=== PATIENT | female | born 1955 | race Caucasian/White ===

== ENCOUNTER 2020-06-23 07:10 | Inpatient (IN) | payer OTHER, SELFPAY ==
[~2020-06-23] VITALS: Ht 154.9 cm; Wt 51.3 kg
--- NOTE | 2020-06-23 07:10 | NUR ---
Patient BIBA ALS from [facility] [place], transferred to bed [address]. Dr. Gage, RT, and RN are evaluating the patient at bedside.
--- NOTE | 2020-06-23 07:12 | NUR ---
RECEIVED FROM [facility] ON A NON REBREATHER TRANSFERRED OXYGEN LINE TO ED FLOW METER AT 15 LPM LOC AWAKE BREATH SOUNDS COARSE RHONCHI BILATERAL REVIEWED PULMONARY STATUS AND NASOTRACHEAL SUCTION PROCEDURE WITH DR. KHURRAM HARRIS USING A STERILE TECHNIQUE APPLIED LUBRICANT TO THE DISTAL END OF 14 FR SUCTION CATHETER INSERTED INTO LEFT NASAL SEPTUM SUCCESSFULLY PASSING EPIGLOTTIS INTO TRACHEA/BRONCHIAL REGION X 2 OBTAINED COPIUOUS AMOUNTS OF THICK YELLOW SECRETIONS SUPPLEMENTAL OYXGEN PROVIDED THROUGHOUT SUCTIONING PROCEDURE TOLERATED WELL WITH VERY MINIMAL TRAUMA SUUPLEMENTAL OXYGEN AT 15 LPM VIA NON REBREATHER REMAINS IN PLACE WITH SATURATION NOW AT 100% FOREMENTIONED KIMBERLY NOTIFIED
[2020-06-23 07:14] VITALS: BP 98/57
--- NOTE | 2020-06-23 07:15 | NUR ---
DR. SHARMA SPOKE TO FAMILY; WISH TO MOVE FORWARD WITH COMFORT CARE BUT ALLOWED FLUID ADMINISTRATION VIA IV, LAB DRAWS, CULTURES, ABX ADMINISTRATION
[2020-06-23] MEDS ORDERED: NACL 0.9% 1,000 ML IV ONE ×2 (07:20→07:25)
[2020-06-23] MEDS ORDERED: ACETAMINOPHEN 650 MG/20.3 ML UDC GT ONE (07:20)
--- NOTE | 2020-06-23 07:21 | NUR ---
Blood sample collected, walked to lab and handed to carito Goodwin tech.
[2020-06-23] MEDS ORDERED: cefTRIAXone 1,000 MG VIAL ONE (07:26)
--- NOTE | 2020-06-23 07:30 | NUR ---
# 16 FR Cuevas catheter with 10 ml utilizing sterile technique. Immediate return of 0 ml urine noted. Bedside drainage bag placed below level of bladder. Urine sample collected and sent to lab. Pt tolerated procedure well. Will continue to monitor for urine return.
--- NOTE | 2020-06-23 07:32 | NUR ---
EMT at bedside for EKG
[2020-06-23 07:34] LABS: BASOPHILS # (AUTO) 0.2 K/uL (0.00-0.22); BASOPHILS % (AUTO) 0.7 % (0.0-2.0); EOSINOPHILS % (AUTO) 0.1 % (0.0-4.0); HEMATOCRIT 38.4 % (36-48); HEMOGLOBIN 12.3 g/dL (12.0-16.0); LYMPHOCYTES # (AUTO) 0.6 K/uL (2.5-16.5); LYMPHOCYTES % (AUTO) 2.4 % (20.5-51.1); MEAN CORPUSCULAR HEMOGLOBIN 28 pg (27-31); MEAN CORPUSCULAR HGB CONC 32 g/dL (33-37); MEAN CORPUSCULAR VOLUME 87.1 fL (80-94); MONOCYTES # (AUTO) 0.6 K/uL (0.8-1.0); MONOCYTES % (AUTO) 2.7 % (1.7-9.3); NEUTROPHILS # (AUTO) 21.5 K/uL (1.8-7.7); NEUTROPHILS % (AUTO) 94.1 % (42.2-75.2); PLATELET COUNT (AUTO) 487 K/uL (140-450); RED BLOOD CELL COUNT(AUTO) 4.41 MIL/uL (4.20-5.40); RED CELL DISTRIBUTION WIDTH 18.6 % (11.6-13.7); WHITE BLOOD COUNT (AUTO) 22.8 K/uL (4.8-10.8)
--- NOTE | 2020-06-23 07:43 | NUR ---
Pollo ortega swab collected, walked to lab and handed to carito Goodwin tech.
--- NOTE | 2020-06-23 07:45 | NUR ---
Concepción nguyen in [facility] - 06/23/20 at 0749 by KENNETH Xray at bedside
--- NOTE | 2020-06-23 07:46 | NUR ---
XRAY AT BEDSIDE
[2020-06-23 07:48] LABS: ALBUMIN 2.8 g/dL (3.4-5.0); ANION GAP 14.9 (8-16); CARBON DIOXIDE 27.5 mmol/L (21-32); CREATININE 0.7 mg/dL (0.6-1.3); POTASSIUM 4.4 mmol/L (3.5-5.1); TOTAL BILIRUBIN 0.6 mg/dL (0.0-1.0)
--- NOTE | 2020-06-23 07:58 | NUR ---
LACTIC ACID 4.9--CRITICAL VALUE RECEIVED FROM LAB. DR SHARMA MADE AWARE.
[2020-06-23 08:11] LABS: APPEARANCE,URINE HAZY (CLEAR); BILIRUBIN,URINE NEGATIVE (NEGATIVE); BLOOD, URINE 2+ (NEGATIVE); COLOR,URINE DARK YELLOW (YELLOW); LEUKOCYTE ESTERASE ,URINE NEGATIVE (NEGATIVE); NITRITE, URINE NEGATIVE (NEGATIVE); PH,URINE 5.5 (5.0-9.0); UGLUCOSE NEGATIVE (NEGATIVE)
[2020-06-23 08:23] LABS: WBC,URINE 0-5 /HPF (0-5)
[2020-06-23] MEDS ORDERED: MULT-2253 GT (08:38)
[2020-06-23] MEDS ORDERED: MELA3TER PO (08:38)
[2020-06-23] MEDS ORDERED: CLON0.2T47 PO (08:38)
[2020-06-23] MEDS ORDERED: MAGN400S60 PO (08:38)
[2020-06-23] MEDS ORDERED: FLEPED RC (08:38)
[2020-06-23] MEDS ORDERED: DOCU-299 GT (08:38)
[2020-06-23] MEDS ORDERED: BISA-213 RC (08:38)
[2020-06-23] MEDS ORDERED: ACET-2619 PO (08:38)
--- NOTE | 2020-06-23 08:57 | NUR ---
DR. BUSBY AT BEDSIDE
[2020-06-23] MEDS ORDERED: guaiFENesin DM 200/20 MG-10 ML 10 ML UDC PO PRN (09:10)
[2020-06-23] MEDS ORDERED: DOCUSATE SODIUM 100 MG GELCAP PO PRN (09:10)
[2020-06-23] MEDS ORDERED: KCL 20 MEQ/WATER INJ PREMIX 200 ML IV PRN (09:10)
[2020-06-23] MEDS ORDERED: ZOLPIDEM 5 MG TAB PO PRN (09:10)
[2020-06-23] MEDS ORDERED: HYDROcodone/APAP 7.5/325 MG 1 TAB PO PRN (09:10)
[2020-06-23] MEDS ORDERED: ACETAMINOPHEN 325 MG TAB PO PRN (09:10)
[2020-06-23] MEDS ORDERED: ONDANSETRON 4 MG/2 ML VIAL IM/IVP PRN (09:10)
[2020-06-23] MEDS ORDERED: cloNIDine-TTS2 0.2 MG/24 HR 1 EA PATCH TD SCH (09:20)
[2020-06-23] MEDS: NACL 0.9% 1,000 ML IV SCH (09:26)
--- NOTE | 2020-06-23 09:43 | NUR ---
PT LYING BED, EYES OPEN, BREATHING EVEN AND UNLABORED. REMAINS ON 15L NON-REBREATHER, SPO2 100%. NO APPARENT DISTRESS. CONTINUES ON MONITOR. WILL CONTINUE TO ASSESS.
[2020-06-23 09:44] LABS: CHOL/HDL RATIO 3.7 (1-4.5); FREE T4 (FREE THYROXINE) 1.28 ng/dL (0.76-1.46); PHOSPHORUS 4.1 mg/dL (2.5-4.9); THYROID STIMULATING HORMONE 1.19 uIU/mL (0.34-3.74)
[2020-06-23] MEDS: PIPERACILLIN/TAZOBACTAM 3.375 GM in DEXTROSE 5% 50 ML IV SCH ×2 (10:00→21:28)
[2020-06-23] MEDS: METOPROLOL 25 MG TAB PO SCH ×2 (10:00→21:30)
--- NOTE | 2020-06-23 10:15 | NUR ---
RECEIVED TRANSFER REPORT FROM ER NURSE. PATIENT ADMITTED FROM [facility] [place] W/ CC OF SOB. DX: SEPSIS PNA; NONVERBAL/DYSPHASIA; ON 15L NONREBREATHER MASK, SPO2 100%; HAS GTUBE PLACED BUT NO FEED SCHEDULED AT THE MOMENT. PATIENT HAS NOEL CATHETER, RAC 18G RUNNING NS @75 ML. PATIENT GIVEN 2 BOLUSES IN ER, ABX ROCEPHIN AND TYLENOL;PATIENT VS: PULSE 120; BP 137/68; RR 20; SPO2 100%; TEMP 99.9. PATIENT IS NEGATIVE [place]. FAMILY IS MONGOLIAN SPEAKING ONLY. PENDING PATIENT TRANSFER TO UNIT.
--- NOTE | 2020-06-23 10:15 | NUR ---
ASKED DR. BUSBY TO CHANGE MED ORDERS FROM PO TO GT DUE TO PTS INABILITY TO SAFELY SWALLOW AT THE MOMENT
--- NOTE | 2020-06-23 10:19 | NUR ---
Patient will be admitted to care of MD QI. Admited to TELEMETRY. Will go to room 121A. Belongings list completed. Report to ALEXANDRA KEEN.
[2020-06-23 10:45] VITALS: BP 110/54
--- NOTE | 2020-06-23 10:45 | NUR ---
PATIENT ARRIVED TO UNIT, PLACED IN YELLOW GOWN, SOCKS; FALL PRECAUTIONS IN PLACE W/ WRISTBAND ON RIGHT WRIST; SKIN ASSESSMENT COMPLETED, SMALL LEFT POSTERIOR HIP PRESSURE WOUND, UNOPENED W/ BARRIER CREAM ON. NO DRAINAGE, NO SWELLING, NO PAIN. PATIENT V/S: BP 110/54; PULSE 114; SPO2 100%; TEMP 96.7; RR 24. PATIENT IS STABLE. SAFETY MEASURES IN PLACE. WILL CONTINUE TO MONITOR.
--- NOTE | 2020-06-23 10:52 | NUR ---
[facility]
[2020-06-23 12:00] VITALS: BP 133/63
[2020-06-23] MEDS ORDERED: VANCOMYCIN PER PHARMACY MC PRN (12:15)
[2020-06-23] MEDS: NACL 0.9% 500 ML IV SCH ×3 (12:20→14:20)
[2020-06-23 12:40] LABS: PROTHROMBIN TIME 10.5 secs (10.8-13.4)
[2020-06-23] MEDS: CLONIDINE HYDROCHLORIDE 0.1 MG TAB PO SCH ×2 (13:00→17:00)
[2020-06-23] MEDS: VANCOMYCIN 1,000 MG in DEXTROSE 5% 250 ML IV SCH (14:00)
[2020-06-23 16:00] VITALS: BP 123/50
--- NOTE | 2020-06-23 19:43 | NUR ---
BEDSIDE ENDORSEMENT TO NIGHTSHIFT NURSE FOR CONTINUITY OF CARE.
--- NOTE | 2020-06-23 19:44 | NUR ---
RECEIVED PATIENT FROM AM NURSE FOR CONTINUITY OF CARE. PATIENT IS NON-VERBAL/APHASIC. ON TELE MONITOR. RESPIRATORY EVEN AND UNLABORED, ON 15L NONREBREATHER MASK, SPO2 100%. G-TUBE IN PLACED. NOEL CATHETER IN PLACE. SKIN WARM, NON-DIAPHORETIC, IV ON RAC 18G RUNNING NS @75 ML. PLAN OF CARE DISCUSSED. PRECAUTION IN PLACE. CALL LIGHT WITHIN REACH. WILL CONTINUE TO MONITOR.
[2020-06-23 20:00] VITALS: BP 144/77
--- NOTE | 2020-06-23 20:00 | NUR ---
VITAL SIGNS CHECK, TEMP 100.1, COOLING MEASURE APPLIED. SKIN DRY, NON-DIAPHORETIC. CALL LIGHT WITHIN REACH. WILL CONTINUE TO MONITOR.
--- NOTE | 2020-06-23 21:00 | NUR ---
RESIDUAL CHECK 0ML. TUBE FEEDING START ORDER. GLUCERNA 1.2 10ML/HR, WATER FLUSH 200ML Q4H. ADVANCE 10ML Q6H. WILL CONTINUE TO MONITOR.
--- NOTE | 2020-06-23 22:20 | NUR ---
RECHECK TEMP 98.2. PATIENT IS RESTING, NO SIGN OF DISTRESS NOTED. CALL LIGHT WITHIN REACH. WILL CONTINUE TO MONITOR.
[2020-06-24] VITALS: BP 136/69
--- NOTE | 2020-06-24 | NUR ---
ROUND CHECK. PATIENT IS SLEEPING. CHEST RISE AND FALL. NO SIGN OF DISTRESS NOTED. PRECAUTION IN PLACE. CALL LIGHT WITHIN REACH. WILL CONTINUE TO MONITOR.
[2020-06-24] MEDS: NACL 0.9% 1,000 ML IV SCH ×2 (00:58→11:53)
--- NOTE | 2020-06-24 02:00 | NUR ---
ROUND CHECK. PATIENT IS RESTING IN BED. FLACC 0. RESPIRATORY EVEN AND UNLABORED. SAFETY MEASURES IN PLACE. WILL CONTINUE TO MONITOR.
--- NOTE | 2020-06-24 03:00 | NUR ---
RESIDUAL 5ML. INCREASE FEEDING 20ML/HR, WATER FLUSH 200ML Q6H. WILL CONTINUE TO MONITOR.
[2020-06-24 04:00] VITALS: BP 115/60
--- NOTE | 2020-06-24 04:00 | NUR ---
PATIENT IS SLEEPING. CHEST RISE AND FALL, NO SIGN OF DISTRESS NOTED. HOB ELEVATED. WILL CONTINUE TO MONITOR.
[2020-06-24 04:57] LABS: BASOPHILS # (AUTO) 0.1 K/uL (0.00-0.22); BASOPHILS % (AUTO) 0.4 % (0.0-2.0); EOSINOPHILS # (AUTO) 0.2 K/uL (0-0.4); EOSINOPHILS % (AUTO) 1.4 % (0.0-4.0); HEMATOCRIT 26.1 % (36-48); HEMOGLOBIN 8.5 g/dL (12.0-16.0); LYMPHOCYTES # (AUTO) 1.8 K/uL (2.5-16.5); LYMPHOCYTES % (AUTO) 10.4 % (20.5-51.1); MEAN CORPUSCULAR HEMOGLOBIN 28 pg (27-31); MEAN CORPUSCULAR HGB CONC 32 g/dL (33-37); MEAN CORPUSCULAR VOLUME 87.1 fL (80-94); MONOCYTES # (AUTO) 0.6 K/uL (0.8-1.0); MONOCYTES % (AUTO) 3.7 % (1.7-9.3); NEUTROPHILS # (AUTO) 14.1 K/uL (1.8-7.7); NEUTROPHILS % (AUTO) 84.1 % (42.2-75.2); PLATELET COUNT (AUTO) 293 K/uL (140-450); RED CELL DISTRIBUTION WIDTH 18.4 % (11.6-13.7); WHITE BLOOD COUNT (AUTO) 16.8 K/uL (4.8-10.8)
[2020-06-24 05:02] LABS: CARBON DIOXIDE 27.6 mmol/L (21-32); CREATININE 0.4 mg/dL (0.6-1.3); POTASSIUM 3.6 mmol/L (3.5-5.1)
[2020-06-24] MEDS: PIPERACILLIN/TAZOBACTAM 3.375 GM in DEXTROSE 5% 50 ML IV SCH ×3 (05:10→21:06)
--- NOTE | 2020-06-24 05:10 | NUR ---
IV MEDICATION GIVEN ORDER. PATIENT TOLERATED WELL. PATIENT IS NO SIGN OF DISTRESS. WILL CONTINUE TO MONITOR.
--- NOTE | 2020-06-24 07:15 | NUR ---
ENDORSED PATIENT TO AM NURSE FOR CONTINUITY OF CARE. PATIENT IS RESTING IN BED. NO SIGN OF DISTRESS NOTED. PATIENT IS STABLE.
--- NOTE | 2020-06-24 07:17 | NUR ---
RECEIVED REPORT FROM NIGHT NURSE PT IS APHASIC ON 15LPM NON REBREATHER MASK SATURATION 99-100%, WITH NOEL CATHETER, IV INTACT ON RIGHT AC LAST BOWEL MOVEMENT 06/23/20, SKIN INTACT WITH WHITE PATCHES ON LEFT POST HIP,RIGHT MEDIAL FOOT AND LEFT LATERAL FOOT. ON BILATERAL HEEL PROTECT.TUBE FEEDING GLUCERNA AT 20 WATERFLUSH 200 Q4H. SAFETY MEASURES IN PLACE AND CALL LIGHT WITHIN REACH. WILL CONTINUE TO MONITOR.
[2020-06-24 08:00] VITALS: BP 130/63
[2020-06-24 08:08] LABS: T4 (THYROXINE) 8.5 ug/dL (4.5-12.0)
--- NOTE | 2020-06-24 08:44 | NUR ---
[facility] REFERRAL RECEIVED FOR TUBE FEEDING. PATIENT HAS BEEN SCREENED AND CATEGORIZED HIGH NUTRITION RISK. PATIENT WILL BE SEEN WITHIN 1-2 DAYS OF ADMISSION. 06/24/[address]
--- NOTE | 2020-06-24 09:00 | NUR ---
RECEIVED RESULT FROM LAB PT IS POSITIVE FOR MRSA NARES. DR BUSBY AWARE AND RECEIVED REPORT.
[2020-06-24] MEDS: PANTOPRAZOLE 40 MG TABEC PO SCH (09:18)
[2020-06-24] MEDS: METOPROLOL 25 MG TAB PO SCH ×2 (09:19→21:00)
--- NOTE | 2020-06-24 09:19 | NUR ---
BP 100/54, HR 104, HOLD LOPRESSOR 25MG DUE TO LOW BLOOD PRESSURE. WILL CONTINUE TO MONITOR.
[2020-06-24] MEDS: CLONIDINE HYDROCHLORIDE 0.1 MG TAB PO SCH ×3 (09:20→16:50)
--- NOTE | 2020-06-24 09:20 | NUR ---
SCHEDULED MEDICATION GIVEN CHECK VITAL SIGNS PRIOR TO BP MEDICATION BP 130/63 MI 92 NO RESIDUALS PT IS STABLE NO DISTRESS NOTED,
[2020-06-24] MEDS: MUPIROCIN CA NASAL 2% 1GM TUBE NS SCH (11:24)
[2020-06-24] MEDS: CHLORHEXADINE GLUC 2% CLOTH TP SCH (11:24)
--- NOTE | 2020-06-24 11:27 | NUR ---
MEDICATION DUE GIVEN PT IS SLEEPING.
[2020-06-24 12:00] VITALS: BP 91/41
--- NOTE | 2020-06-24 12:08 | NUR ---
SOCIAL WORK NOTE: Patient's Orientation Unable To Assess Information Provided By KYAW PORTILLO - DAUGHTER Comments SW WAS UNABLE TO MEET PATIENT AT BEDSIDE. SW COMPLETED ASSESSMENT WITH PATIENT'S DAUGHTER. SW USED DIRECTOR OF RECRUITMENT AND ADMISSIONS LV [id number]. Box Gluer, Realtionship and Phone Number KYAW PORTILLO DAUGHTER [phone] ROYA ZAZUETA [phone] Healthcare Power of Paper Rewinder Operator No Does Patient Have a POLST No Identifying Problems No Social Work Triggers Is A Social Work Consult Needed No Mandate Report Filed No Explanation Of Identifying Problems PATIENT IS A 64-YEAR-OLD FEMALE ADMITTED FOR SEPSIS AND PNEUMONIA. PATIENT HAS PMHX OF ALZHEIMER'S DISEASE, HYPERTENSION, METABOLIC ENCEPHALOPATHY, AND DYSPHAGIA. [facility] - [phone] Pre-Admission Level Of Functioning Status Total Care Prior Resources/Services Used In Last 12 Months SNF [facility] Prior Resources/Service Comments PATIENT IS INTERMEDIATE AND ON A BED HOLD. Prior DME Hospital Bed Dialysis Comments N/A Patient Had Caregiver No Home Support No Caregiver Issues Financial Issues No Known Financial Issue Referral To The Financial Counselor Needed No Factors/Needs No D/C Needs Identified Pt/Rep Participated In Discharge Plan Yes Patient/Family Agress With Discharge Plan Yes Discharge Plan Comments TENTATIVE DISCHARGE PLAN IS FOR PATIENT TO RETURN HOME. DC Plan Status Initiated
--- NOTE | 2020-06-24 12:53 | NUR ---
MEDICATION DUE GIVEN CLONIDINE HCL 0.2 HELP PER PARAMETERS BP 91/41 VT 78 OXYGEN SATURATION 100%. NO DISTRESS NOTED.
[2020-06-24] MEDS: VANCOMYCIN 1,000 MG in DEXTROSE 5% 250 ML IV SCH (14:10)
--- NOTE | 2020-06-24 14:30 | NUR ---
06/24/20 INITIAL ASSESSMENT COMPLETED PLEASE REFER TO NUTRITION ASSESSMENT UNDER CARE ACTIVITY FOR ESTIMATED NUTRITIONAL NEEDS. 1. CONTINUE GLUCERNA @ 40 ML/HR -THIS PROVIDE 1152 KCAL AND 58 GM OF PROTEIN WHICH MEETS 80% OF ESTIMATED KCAL AND 100% OF PROTEIN NEEDS 2. FLUSH PER MD. CURRENTLY [address] TO FOLLOW-UP 2-3 DAYS, HIGH RISK JENNIFER NUNO RD
--- NOTE | 2020-06-24 15:00 | NUR ---
TUBE FEEDING INCREASE FROM 30ML TO 40 ML/HR AND WATER FLUSH 200 Q4H. PATIENT TOLERATED WELL NO DISTRESS NOTED.
[2020-06-24 16:00] VITALS: BP 93/59
--- NOTE | 2020-06-24 16:51 | NUR ---
CLONODINE HCL 0.1 MG HELD PT VITAL SIGNS BP 93/59 ND 79. PT IS AWAKE AND NO DISTRESS NOTED.
--- NOTE | 2020-06-24 19:14 | NUR ---
ENDORSED TO NIGHT NURSE FOR CONTINUITY OF CARE. PT IS STABLE
--- NOTE | 2020-06-24 19:15 | NUR ---
RECEIVED PATIENT FROM AM NURSE FOR CONTINUITY OF CARE. PT IS APHASIC. ON TELE MONITOR. RESPIRATORY EVEN AND UNLABORED, ON 15LPM NON REBREATHER MASK, NO SIGN OF DISTRESS NOTED. SKIN WARM, NON-DIAPHORETIC, WHITES PATCHES NOTED ON LEFT POST HIP, SKIN INTACT, ON BILATERAL HEEL PROTECT. IV ON RIGHT AC 18G, INTACT AND PATENT, IS INFUSING FLUID. NOEL CATHETER IN PLACE. G-TUBE IN PLACE WITH GLUCERNA AT 40ML/HR, WATER FLUSH 200 Q4H. CARE PLAN DISCUSSED. SAFETY MEASURES IN PLACE. CALL LIGHT WITHIN REACH. WILL CONTINUE TO MONITOR.
[2020-06-24 20:00] VITALS: BP 100/54
--- NOTE | 2020-06-24 20:00 | NUR ---
PT BP 100/54, HR 104. NO SIGN OF DISTRESS NOTED. PATIENT AWAKE WITH EYES OPEN. APHASIC. CALL LIGHT WITHIN REACH. WILL CONTINUE TO MONITOR.
--- NOTE | 2020-06-24 21:19 | NUR ---
HOLD LOPRESSOR 25MG DUE TO LOW BLOOD PRESSURE. RESIDUAL CHECK 25CC. WILL CONTINUE FEEDING @40ML/HR WATER FLUSH 200 ML Q4H. NO SIGN OF DISTRESS NOTED. HOB ELEVATED. WILL CONTINUE TO MONITOR.
--- NOTE | 2020-06-24 22:00 | NUR ---
ROUND CHECK. PATIENT IS AWAKE, RESTING IN BED. NO SIGN OF RESPIRATORY DISTRESS NOTED, ON NON-BREATHER MASK 15L. WILL CONTINUE TO MONITOR.
[2020-06-25] VITALS: BP 113/54
--- NOTE | 2020-06-25 | NUR ---
PATIENT VITAL SIGN STABLE, PB 113/54, HR 74, RR 18, TEMP 98.2, O2 SAT 96% ON NON-BREATHER MASK 15L. NO SIGN OF DISTRESS NOTED. HOB ELEVATED. WILL CONTINUE TO MONITOR.
[2020-06-25] MEDS: NACL 0.9% 1,000 ML IV SCH ×3 (01:13→21:02)
--- NOTE | 2020-06-25 02:00 | NUR ---
ROUND CHECK. PATIENT IS AWAKE, EYES OPEN SPONTANEOUS. NO SIGN OF DISTRESS NOTED. HOB ELEVATED. CALL LIGHT WITHIN REACH. WILL CONTINUE TO MONITOR.
--- NOTE | 2020-06-25 02:50 | NUR ---
PATIENT WAS MONITORING O2 SAT WITHOUT NON-BREATHER MASK BY RT, O2 SAT 98-100%. NON-BREATHER MASK WAS REMOVED BY RT. PATIENT IS ON ROOM AIR. NO SIGN OF DISTRESS NOTED. WILL CONTINUE TO MONITOR.
--- NOTE | 2020-06-25 02:53 | NUR ---
RT AT THE BEDSIDE. PATIENT IS NO SIGN OF RESPIRATORY DISTRESS NOTED. PATIENT IS AWAKE WITH EYES OPEN. WILL CONTINUE TO MONITOR.
[2020-06-25 04:00] VITALS: BP 113/52
--- NOTE | 2020-06-25 04:00 | NUR ---
VITAL SIGN TAKEN. PATIENT IS STABLE. PATIENT ON ROOM AIR, O2 SAT 100%. PATIENT IS RESTING. NO SIGN OF DISTRESS NOTED. HOB ELEVATED. WILL CONTINUE TO MONITOR.
[2020-06-25] MEDS: PIPERACILLIN/TAZOBACTAM 3.375 GM in DEXTROSE 5% 50 ML IV SCH ×3 (05:04→20:41)
--- NOTE | 2020-06-25 05:04 | NUR ---
ESTUARDO MEDICATION GIVEN ORDERED. PATIENT IS RESTING IN BED. NO SIGN OF DISTRESS NOTED. WILL CONTINUE TO MONITOR.
[2020-06-25 06:19] LABS: BASOPHILS % (AUTO) 0.3 % (0.0-2.0); EOSINOPHILS # (AUTO) 0.1 K/uL (0-0.4); EOSINOPHILS % (AUTO) 2.3 % (0.0-4.0); HEMATOCRIT 26.6 % (36-48); HEMOGLOBIN 8.6 g/dL (12.0-16.0); LYMPHOCYTES # (AUTO) 1.1 K/uL (2.5-16.5); LYMPHOCYTES % (AUTO) 20.8 % (20.5-51.1); MEAN CORPUSCULAR HEMOGLOBIN 28 pg (27-31); MEAN CORPUSCULAR HGB CONC 32 g/dL (33-37); MEAN CORPUSCULAR VOLUME 87.1 fL (80-94); MONOCYTES # (AUTO) 0.4 K/uL (0.8-1.0); MONOCYTES % (AUTO) 7.6 % (1.7-9.3); NEUTROPHILS # (AUTO) 3.8 K/uL (1.8-7.7); PLATELET COUNT (AUTO) 278 K/uL (140-450); RED BLOOD CELL COUNT(AUTO) 3.05 MIL/uL (4.20-5.40); WHITE BLOOD COUNT (AUTO) 5.5 K/uL (4.8-10.8)
[2020-06-25 06:33] LABS: ANION GAP 10.4 (8-16); CARBON DIOXIDE 25.9 mmol/L (21-32); CREATININE 0.3 mg/dL (0.6-1.3); POTASSIUM 3.3 mmol/L (3.5-5.1)
--- NOTE | 2020-06-25 07:30 | NUR ---
ENDORSED PATIENT TO AM NURSE FOR CONTINUITY OF CARE. PATIENT IS RESTING IN BED, ON ROOM AIR. NO SIGN OF DISTRESS NOTED. PATIENT IS STABLE.
--- NOTE | 2020-06-25 07:35 | NUR ---
RECEIVED BEDSIDE ENDORSEMENT FROM NIGHTSDCFT NURSE FOR CONTINUITY OF CARE.
[2020-06-25 08:00] VITALS: BP 129/68
--- NOTE | 2020-06-25 08:42 | NUR ---
DC PLANN[age] YRS OLD FEMALE PATIENT WAS ADMITTED FROM [facility] [place] WITH A DX SEPSIS AND PNA. PT HAS A HX OF ALZHEIMER , METABOLIC ENCEPHALOPATHY, HTN , G-TUBE AND DYSPHAGIA. CXR SHOWED NO RADIOGRAPHIC FINDINGS. RAPID COVID TEST NEGATIVE. STARTED IVF, ZOSYN IV ABX AND CONTINUED HOME MEDS. ON NON-REBREATHER 15L SATING 96% . CONSULTED WITH BRUCE. DC PLAN TO GO BACK TO [facility] [place] WHEN STABLE CM TO FOLLOW Addendum: 06/26/20 at 1614 by Corazon Gill CM DC SENIOR RESEARCH PROJECT MANAGER: POSSIBLE DC BACK TO [facility] [place] TOMORROW. FAXED CLINICALS Addendum: 06/27/20 at 1140 by Char Denise RN DC PLANNING: PT IS ACCEPTED AT [facility] [place] CAN GO TO ROOM [address] ACCE[address] QUIROZ # TO GIVE REPORT [phone] WILL ARRANGE TRANSPORT WITH CHRISTNIE CM TO FOLLOW Addendum: 06/27/20 at 1201 by Nik STAHL LEBRON CONTACTED DAVIE FROM [facility] [phone]. DAVIE IS CURRENTLY NOT IN OFFICE. LEBRON RECEIVED COVERAGE FOR ALY BRODERICK [phone]. LEBRON LEFT ALY Arriaza VM REGARDING TRANSPORTATION AUTH FOR PATIENT. LEBRON WILL FOLLOW UP. Addendum: 06/27/20 at 1237 by Nik STAHL LEBRON RECEIVED AUTH #[id number] FROM SHELIA FROM [facility]. LEBRON ARRANGED TRANSPORTATION FOR PATIENT AT 3PM WITH [employer]. LEBRON SPOKE WITH BOB FROM [employer] [phone] AND PROVIDED AUTH. LEBRON NOTIFIED ALEXANDRA REED.
[2020-06-25] MEDS: CLONIDINE HYDROCHLORIDE 0.1 MG TAB PO SCH ×4 (09:00→20:00)
[2020-06-25] MEDS: METOPROLOL 25 MG TAB PO SCH ×2 (09:23→20:41)
[2020-06-25] MEDS: PANTOPRAZOLE 40 MG TABEC PO SCH (09:24)
--- NOTE | 2020-06-25 09:35 | NUR ---
ADMINISTERED PRESCRIBED MEDS PER MD ORDER. PATIENT TOLERATED WELL. NO G TUBE RESIDUALS. MEDICATION EDUCATION REINFORCEMENT NEEDED. PATIENT IS AWAKE, TELEVISION IS ON. SAFETY MEASURES IN PLACE. WILL CONTINUE TO MONITOR.
--- NOTE | 2020-06-25 10:05 | NUR ---
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 NO OPEN ACTIVE WOUND, MULTIPLE OLD HEALS SCARS TISSUE TO BILATERAL TROCHANTERS AND SACRALCOCCYX. BLANCHABLE REDNESS TO BILATERAL HEELS, SKIN INTACT, AREA WITH HEEL PROTECTORS AND OFFLOADING. POC DISCUSSED WITH PRIMARY RN ORDERS REVIEWED. RECOMMENDATIONS -APPLY FOAM DRESSING TO SACRALCOCCYX, RIGHT AND LEFT TROCHANTERS CHANGE QD AND PRN IF SOILING, OFFLOADING AT ALL TIMES -TURN AND REPOSITION PATIENT Q 2H -ASSESS AND MONITOR SKIN CONDITION DURING POSITION CHANGE -OFFLOAD BILATERAL HEELS BY PLACING PILLOWS UNDER CALVES AT ALL TIMES, UNLESS OTHERWISE CONTRAINDICATED -PRESSURE REDISTRIBUTION SURFACE THERAPY -KEEP SKIN CLEAN AND DRY AT ALL TIMES. PLEASE CONTACT WOUND CARE NURSE FOR ANY QUESTION AND CHANGE OF WOUND CONDITION.
[2020-06-25] MEDS: CHLORHEXADINE GLUC 2% CLOTH TP SCH (11:45)
[2020-06-25] MEDS: MUPIROCIN CA NASAL 2% 1GM TUBE NS SCH (11:45)
--- NOTE | 2020-06-25 11:45 | NUR ---
ADMINISTERED PRESCRIBED MEDS PER MD ORDER. PATIENT RESTING IN BED, TELEVISION IS ON, PATIENT SHOWS NO SIGNS OF PAIN, DISCOMFORT OR DISTRESS. RESPIRATIONS EVEN AND UNLABORED ON ROOM AIR. SAFETY MEASURES IN PLACE. WILL CONTINUE TO MONITOR.
[2020-06-25 12:00] VITALS: BP 130/59
--- NOTE | 2020-06-25 13:36 | NUR ---
ADMINISTERED PRESCRIBED MEDS PER MD ORDER. PATIENT TOLERATED WELL. MEDICATION EDUCATION REINFORCEMENT NEEDED DUE TO APHASIC. SAFETY MEASURES IN PLACE. WILL CONTINUE TO MONITOR.
--- NOTE | 2020-06-25 15:01 | NUR ---
HOURLY ROUNDING PERFORMED. PATIENT LAYING IN BED, TELEVISION IS ON. PATIENT EYES ARE OPENED. SMILED UPON TALKING TO HER. PATIENT SHOWS NO SIGNS OF DISTRESS/DISCOMFORT. ON ROOM AIR, RESPIRATIONS EVEN AND UNLABORED. SAFETY MEASURES IN PLACE. WILL CONTINUE TO MONITOR.
[2020-06-25] MEDS: VANCOMYCIN 1,000 MG in DEXTROSE 5% 250 ML IV SCH (15:42)
--- NOTE | 2020-06-25 15:43 | NUR ---
ADMINISTERED PRESCRIBED MEDS PER MD ORDER. PATIENT IN BED, BOX COVERER HAND AT BEDSIDE EMPTIED PATIENT URINAL, REPOSITIONED. SAFETY MEASURES IN PLACE. WILL CONTINUE TO MONITOR.
[2020-06-25 16:00] VITALS: BP 136/59
--- NOTE | 2020-06-25 19:34 | NUR ---
BEDSIDE ENDORSEMENT PROVIDED TO NIGHTSHIFT NURSE FOR CONTINUITY OF CARE.
[2020-06-25 20:00] VITALS: BP 114/75
--- NOTE | 2020-06-25 20:00 | NUR ---
RECEIVED PATIENT DURING ROUNDS ASLEEP BUT EASY TO AROUSE. PATIENT NON VERBAL BASELINE. NO SIGN AND SYMPTOMS OF DISTRESS NOTED AT THIS TIME. VSS, AFEBRILE, SATING 99% ON RA. SR WITH BBB ON FOOD TRADES ASSISTANTS, HR=77. IVF INFUSING ORDERED. G-TUBE INFUSING ORDERED. HOB ELEVATED TO PREVENT ASPIRATION. SIDE RAILS UP X2 AND BED IN LOW POSITION. WILL CONTINUE POC AND MONITORING.
--- NOTE | 2020-06-25 22:00 | NUR ---
Administered all the scheduled medications as ordered. Patient tolerated it well and no adverse drug reaction noted. No sign and symptoms of distress noted. HOB elavated to prevent aspiration. Repositioned for comfort and to prevent skin breakdown.
[2020-06-26] VITALS: BP 123/55
--- NOTE | 2020-06-26 | NUR ---
PATIENT VITALS SIGNS STABLE, SATING 97% ON RA. NO SIGN AND SYMPTOMS OF DISTRESS NOTED AT THIS TIME. SR ON NEEDLE SETTER, HR-70.
--- NOTE | 2020-06-26 02:00 | NUR ---
PATIENT ASLEEP AT THIS TIME. NO SIGN AND SYMPTOMS OF DISTRESS NOTED AT THIS TIME. VISIBLE CHEST RISE AND FALL NOTED. SAFETY MEASURES IN PLACED.
[2020-06-26] MEDS: VANCOMYCIN 1,000 MG in DEXTROSE 5% 250 ML IV SCH ×2 (02:57→15:41)
[2020-06-26 04:00] VITALS: BP 133/62
--- NOTE | 2020-06-26 04:00 | NUR ---
PATIENT VITALS SIGNS STABLE, SATING 100% ON RA. NO COMPLAIN OF PAIN AT THIS TIME. SR WITH BBB AND PEAKED T WAVE. ON ROTARY FILTER OPERATOR, HR-81.
[2020-06-26] MEDS: PIPERACILLIN/TAZOBACTAM 3.375 GM in DEXTROSE 5% 50 ML IV SCH ×3 (05:10→20:55)
[2020-06-26 05:58] LABS: ANION GAP 8.3 (8-16); CARBON DIOXIDE 28.2 mmol/L (21-32); CREATININE 0.4 mg/dL (0.6-1.3); POTASSIUM 3.5 mmol/L (3.5-5.1)
[2020-06-26 06:00] LABS: BASOPHILS % (AUTO) 0.4 % (0.0-2.0); EOSINOPHILS # (AUTO) 0.1 K/uL (0-0.4); EOSINOPHILS % (AUTO) 1.5 % (0.0-4.0); HEMOGLOBIN 9.3 g/dL (12.0-16.0); LYMPHOCYTES # (AUTO) 1.3 K/uL (2.5-16.5); LYMPHOCYTES % (AUTO) 26.9 % (20.5-51.1); MEAN CORPUSCULAR HEMOGLOBIN 28 pg (27-31); MEAN CORPUSCULAR HGB CONC 33 g/dL (33-37); MEAN CORPUSCULAR VOLUME 85.9 fL (80-94); MONOCYTES # (AUTO) 0.4 K/uL (0.8-1.0); MONOCYTES % (AUTO) 8.4 % (1.7-9.3); NEUTROPHILS # (AUTO) 3.1 K/uL (1.8-7.7); NEUTROPHILS % (AUTO) 62.8 % (42.2-75.2); PLATELET COUNT (AUTO) 298 K/uL (140-450); RED BLOOD CELL COUNT(AUTO) 3.26 MIL/uL (4.20-5.40); RED CELL DISTRIBUTION WIDTH 17.3 % (11.6-13.7); WHITE BLOOD COUNT (AUTO) 4.9 K/uL (4.8-10.8)
--- NOTE | 2020-06-26 06:21 | NUR ---
PATIENT STABLE. NO ACUTE EVENT THROUGHOUT THE NIGHT. NO COMPLAIN AT THIS TIME. MEDICATED THE PT FOR PAIN EARLIER. ALL NEEDS ATTENDED. CALL LIGHT WITHIN REACH. WILL ENDORSE THE PT TO THE ONCOMING RN FOR CONTINUITY OF CARE.
--- NOTE | 2020-06-26 07:26 | NUR ---
PT REPORT RECEIVED FROM NIGHT NURSE. PT IS RESTING IN BED EYES CLOSED EASY TO AROUSE. NO S/S OF DISTRESS. RIGHT AC 1820 G IS CLEAN DRY AND INTACT ALL SAFETY MEASURES ARE IN PLACE. CALL LIGHT IS WITHIN REACH WILL CONTINUE TO MONITOR.
[2020-06-26 08:00] VITALS: BP 126/76
[2020-06-26] MEDS: PANTOPRAZOLE 40 MG TABEC PO SCH (08:40)
[2020-06-26] MEDS: METOPROLOL 25 MG TAB PO SCH ×2 (08:42→20:56)
--- NOTE | 2020-06-26 08:51 | NUR ---
ADMINISTERED PRESCRIBED MEDS PER MD ORDER. PT EDUCATED REINFORCEMENT NEEDED. PATIENT RESTING IN BED. PATIENT SHOWS NO SIGNS OF PAIN, DISCOMFORT OR DISTRESS. RESPIRATIONS EVEN AND UNLABORED ON ROOM AIR. SAFETY MEASURES IN PLACE. WILL CONTINUE TO MONITOR.
--- NOTE | 2020-06-26 10:46 | NUR ---
PT RESTING IN BED COMFORTABLY. TV IS ON .PATIENT SHOWS NO SIGNS OF PAIN, DISCOMFORT OR DISTRESS. RESPIRATIONS EVEN AND UNLABORED. SAFETY MEASURES IN PLACE. CALL LIGHT IS WITHIN REACH. WILL CONTINUE TO MONITOR.
[2020-06-26] MEDS: CHLORHEXADINE GLUC 2% CLOTH TP SCH (11:13)
[2020-06-26] MEDS: MUPIROCIN CA NASAL 2% 1GM TUBE NS SCH (11:13)
--- NOTE | 2020-06-26 11:22 | NUR ---
ADMINISTERED PRESCRIBED MEDS PER MD ORDER. PT TOLERATED WELL. EDUCATED BUT PT NEEDS REINFORCEMENT. CHLORHEXIDINE BATH DONE. PATIENT RESTING IN BED WATCHING TV.PATIENT SHOWS NO SIGNS OF PAIN, DISCOMFORT OR DISTRESS. FLACC (0). RESPIRATIONS EVEN AND UNLABORED ON ROOM AIR. SAFETY MEASURES IN PLACE. WILL CONTINUE TO MONITOR.
[2020-06-26 12:00] VITALS: BP 133/68
[2020-06-26] MEDS: CLONIDINE HYDROCHLORIDE 0.1 MG TAB PO SCH ×2 (12:47→17:00)
--- NOTE | 2020-06-26 13:00 | NUR ---
WOUND CARE PROPHYLAXIS IN PLACE. PT TOLERATED WELL. PT EDUCATED NEEDS REINFORCEMENT. WILL CONTINUE TO MONITOR.
--- NOTE | 2020-06-26 13:47 | NUR ---
06/26/20 FOLLOW UP COMPLETED PLEASE REFER TO NUTRITION ASSESSMENT UNDER CARE ACTIVITY FOR ESTIMATED NUTRITIONAL NEEDS. 1. CONTINUE GLUCERNA @ 40 ML/HR -THIS PROVIDE 1152 KCAL AND 58 GM OF PROTEIN WHICH MEETS 80% OF ESTIMATED KCAL AND 100% OF PROTEIN NEEDS 2. FLUSH PER MD. CURRENTLY [address] TO FOLLOW-UP 2-3 DAYS, HIGH RISK JENNIFER NUNO RD
--- NOTE | 2020-06-26 15:07 | NUR ---
PT IS RESTING IN BED COMFORTABLY. EYES CLOSED EASY TO AROUSE. NO S/S OF DISTRESS. CALL LIGHT IS WITHIN REACH. ALL SAFETY MEASURES ARE IN PLACE WILL CONTINUE TO MONITOR.
[2020-06-26 16:00] VITALS: BP 106/72
--- NOTE | 2020-06-26 17:10 | NUR ---
PT IS RESTING IN BED COMFORTABLY. NO S/S OF DISTRESS. CALL LIGHT IS WITHIN REACH. ALL SAFETY MEASURES ARE IN PLACE WILL CONTINUE TO MONITOR.
[2020-06-26] MEDS: NACL 0.9% 1,000 ML IV SCH (17:42)
--- NOTE | 2020-06-26 18:54 | NUR ---
PT REPOSITIONED AND CHANGED. PT TOLERATED WELL. NO S/S OF DISTRESS. CALL LIGHT IS WITHIN REACH. ALL SAFETY MEASURES ARE IN PLACE WILL CONTINUE TO MONITOR.
--- NOTE | 2020-06-26 19:25 | NUR ---
PT ENDORSED TO HOLE DIGGER TRUCK DRIVER RN FOR CONTINUITY OF CARE. WILL CONTINUE TO MONITOR
[2020-06-26 20:00] VITALS: BP 124/63
--- NOTE | 2020-06-26 20:00 | NUR ---
RECEIVED PATIENT DURING ROUNDS AWAKE,ALERT AND NON VERBAL BASELINE. NO SIGN AND SYMPTOMS OF DISTRESS NOTED AT THIS TIME. VSS, AFEBRILE, SATING 97% ON RA. SR WITH PEAKED T WAVE ON TIMBER SURVEYOR, HR=75. IVF INFUSING ORDERED. G-TUBE FEEDING INFUSING ORDERED. HOB ELEVATED TO PREVENT ASPIRATION. SIDE RAILS UP X2 AND BED IN LOW POSITION. WILL CONTINUE POC AND MONITORING.
--- NOTE | 2020-06-26 22:00 | NUR ---
ADMINISTERED SCHEDULED MEDICATIONS EARLIER ORDERED AND PT TOLERATED IT WELL. NO ADVERSE DRUG REACTIONS NOTED.
[2020-06-27] VITALS: BP 123/66
--- NOTE | 2020-06-27 | NUR ---
PATIENT VITALS SIGNS STABLE, SATING 97% ON RA. NO SIGN AND SYMPTOMS OF DISTRESS NOTED AT THIS TIME. SR WITH PEAKED T WAVE ON SHOT POLISHER AND INSPECTOR, HR-68.
--- NOTE | 2020-06-27 02:00 | NUR ---
PATIENT ASLEEP AT THIS TIME. NO SIGN AND SYMPTOMS OF DISTRESS NOTED AT THIS TIME. VISIBLE CHEST RISE AND FALL NOTED. SAFETY MEASURES IN PLACED.
[2020-06-27] MEDS: VANCOMYCIN 1,000 MG in DEXTROSE 5% 250 ML IV SCH ×2 (03:19→15:00)
[2020-06-27 04:00] VITALS: BP 124/55
--- NOTE | 2020-06-27 04:00 | NUR ---
PATIENT VITALS SIGNS STABLE, SATING 97% ON RA. NO SIGN AND SYMPTOMS OF DISTRESS NOTED AT THIS TIME. SR WITH PEAKED T WAVE ON SENIOR BI DEVELOPER, HR-72.
[2020-06-27] MEDS: PIPERACILLIN/TAZOBACTAM 3.375 GM in DEXTROSE 5% 50 ML IV SCH ×2 (05:02→13:09)
[2020-06-27 05:39] LABS: BASOPHILS % (AUTO) 0.7 % (0.0-2.0); EOSINOPHILS # (AUTO) 0.1 K/uL (0-0.4); HEMATOCRIT 26.1 % (36-48); HEMOGLOBIN 8.6 g/dL (12.0-16.0); LYMPHOCYTES # (AUTO) 1.6 K/uL (2.5-16.5); LYMPHOCYTES % (AUTO) 38.5 % (20.5-51.1); MEAN CORPUSCULAR HEMOGLOBIN 28 pg (27-31); MEAN CORPUSCULAR HGB CONC 33 g/dL (33-37); MEAN CORPUSCULAR VOLUME 86.2 fL (80-94); MONOCYTES # (AUTO) 0.4 K/uL (0.8-1.0); MONOCYTES % (AUTO) 9.7 % (1.7-9.3); NEUTROPHILS % (AUTO) 48.1 % (42.2-75.2); PLATELET COUNT (AUTO) 286 K/uL (140-450); RED BLOOD CELL COUNT(AUTO) 3.03 MIL/uL (4.20-5.40); RED CELL DISTRIBUTION WIDTH 17.3 % (11.6-13.7); WHITE BLOOD COUNT (AUTO) 4.2 K/uL (4.8-10.8)
[2020-06-27 05:51] LABS: CARBON DIOXIDE 27.6 mmol/L (21-32); CREATININE 0.4 mg/dL (0.6-1.3); POTASSIUM 3.6 mmol/L (3.5-5.1)
[2020-06-27] MEDS: NACL 0.9% 1,000 ML IV SCH (07:02)
--- NOTE | 2020-06-27 07:10 | NUR ---
PT RECEIVED FROM NIGHT RN. PT IS RESTING WITH EYES CLOSED. EASY TO WILL CONTINUE TO MONITOR.
[2020-06-27 08:00] VITALS: BP 145/63
[2020-06-27] MEDS: METOPROLOL 25 MG TAB PO SCH (08:18)
[2020-06-27] MEDS: CLONIDINE HYDROCHLORIDE 0.1 MG TAB PO SCH ×2 (08:18→13:00)
[2020-06-27] MEDS: PANTOPRAZOLE 40 MG TABEC PO SCH (08:18)
--- NOTE | 2020-06-27 08:31 | NUR ---
MEDICATIONS GIVEN PER MD ORDER. PT EDUCATED. PT VERBALIZED UNDERSTANDING. PT TOLERATED WELL. NO S/S OF DISTRESS AT THIS TIME. CALL LIGHT IS WITHIN REACH. ALL SAFETY MEASURES ARE IN PLACE. WILL CONTINUE TO MONITOR.
--- NOTE | 2020-06-27 10:00 | NUR ---
IV REINSERTED. PT TOLERATED WELL. PT EDUCATED NOT TO PULL OUT IV REINFORCEMENT NEEDED. PT TOLERATING WELL. NO S/S OF DISTRESS AT THIS TIME. CALL LIGHT IS WITHIN REACH. ALL SAFETY MEASURES ARE IN PLACE. WILL CONTINUE TO MONITOR.
[2020-06-27] MEDS ORDERED: IV Zosyn IV (10:40)
[2020-06-27] MEDS ORDERED: LOPERAMIDE 2 MG CAP PO SCH (11:11)
[2020-06-27] MEDS: CHLORHEXADINE GLUC 2% CLOTH TP SCH (11:17)
[2020-06-27] MEDS: MUPIROCIN CA NASAL 2% 1GM TUBE NS SCH (11:17)
[2020-06-27 11:45] VITALS: BP 100/52
--- NOTE | 2020-06-27 11:50 | NUR ---
GAVE REPORT TO ALEXANDRA ROSARIO AT [facility]. RN VERBALIZED UNDERSTANDING.
[2020-06-27 12:00] VITALS: BP 100/40
--- NOTE | 2020-06-27 12:50 | NUR ---
PTS VITALS REASSESSED. MD MADE AWARE THAT BP IS LOW. ORDERS CARRIED ORDER. PT IS TOLERATING WELL. NO S/S OF DISTRESS AT THIS TIME. CALL LIGHT IS WITHIN REACH. ALL SAFETY MEASURES ARE IN PLACE. WILL CONTINUE TO MONITOR.
[2020-06-27] MEDS ORDERED: NACL 0.9% 1,000 ML IV ONE ×2 (13:10)
--- NOTE | 2020-06-27 14:00 | NUR ---
PT REASSESSED. PT IS STABLE. NO S/S OF DISTRESS AT THIS TIME. CALL LIGHT IS WITHIN REACH. ALL SAFETY MEASURES ARE IN PLACE. WILL CONTINUE TO MONITOR.
[2020-06-27 16:00] VITALS: BP 116/62
--- NOTE | 2020-06-27 16:36 | NUR ---
REPORT GIVEN TO [facility] TO CONTINUITY OF CARE.PT IS STABLE BP 126/84. ALL WRIST BANDS TAKEN OFF, TELE MONITOR RETURNED TO DESIGNATED AREA.
== END 2020-06-27 16:40 | DRG 871 ==
LOC: MED 07:10 → MTU 10:37
PROVIDERS: ADMIT Family Medicine; ATTEND Family Medicine
DX: A41.9 Sepsis, unspecified organism (principal); J69.0 Pneumonitis due to inhalation of food and vomit; G93.41 Metabolic encephalopathy; E43 Unspecified severe protein-calorie malnutrition; R65.21 Severe sepsis with septic shock; J96.01 Acute respiratory failure with hypoxia; N39.0 Urinary tract infection, site not specified; I10 Essential (primary) hypertension; G30.9 Alzheimer's disease, unspecified; F02.80 Dementia in other diseases classified elsewhere, unspecified severity, without behavioral disturbance, psychotic disturbance, mood disturbance, and anxiety; Z20.822 Contact with and (suspected) exposure to COVID-19; R73.9 Hyperglycemia, unspecified; E86.0 Dehydration; R13.10 Dysphagia, unspecified; D64.9 Anemia, unspecified; E87.6 Hypokalemia; Z66 Do not resuscitate; Z68.21 Body mass index [BMI] 21.0-21.9, adult
CPT/HCPCS: 36415; 71045; 80048; 80053; 80202; 81001; 82150; 82550; 83036; 83605; 83690; 83735; 83880; 84100; 84436; 84439; 84443; 84479; 84484; 85025; 85610; 85730; 87040; 87081; 93005; 96365; 99291; J0696; J1644; J2543; J3370; J7030; J7060

== ENCOUNTER 2020-07-19 16:15 | Inpatient (IN) | payer OTHER, SELFPAY ==
[~2020-07-19] VITALS: Ht 157.5 cm; Wt 43.1 kg
[~2020-07-19 16:15] MED LIST: ACET-2619 PO; BISA-213 RC; CLON0.2T47 PO; DOCU-299 GT; FLEPED RC; IV Zosyn IV; MAGN400S60 PO; MELA3TER PO; MULT-2253 GT
[2020-07-19] MEDS ORDERED: VANCOMYCIN 1,000 MG in DEXTROSE 5% 250 ML IV ONE (16:25)
[2020-07-19] MEDS ORDERED: PIPERACILLIN/TAZOBACTAM 4.5 GM in DEXTROSE 5% 100 ML IV ONE (16:25)
[2020-07-19 16:32] VITALS: BP 114/55
[2020-07-19] MEDS ORDERED: PIPERACILLIN/TAZOBACTAM 4.5 GM VIAL IV ONE (16:38)
[2020-07-19] MEDS ORDERED: VANCOMYCIN 1,000 MG VIAL ONE (16:39)
[2020-07-19] MEDS ORDERED: ACETAMINOPHEN 650 MG SUPP RC ONE (16:40)
--- NOTE | 2020-07-19 16:40 | NUR ---
EMT at pt bedside.
--- NOTE | 2020-07-19 16:43 | NUR ---
64 Y/O FEMALE BIBA FROM [facility] FOR SOB, PER MEDIC PT IS DNR AND PT AT 70% ON 12L NRB. ON ARRIVAL PT WAS PLACED ON 15L NRB OS 87%. ON ARRIVAL TO US RT AT BEDSIDE PT PLACED ON HIGH FLOW O2 40L. PT BLOOD GLUCOSE 126 PER MEDIC. PMH: SEE PT CHART FOR EXTENSIVE HISTORY NKA
--- NOTE | 2020-07-19 16:57 | NUR ---
occupational therapy technician at pt bedside.
--- NOTE | 2020-07-19 17:06 | NUR ---
ABG DRAWN TWICE BY MYSELF AND WWS-ACTIVATED SLUDGE ATTENDANT CORRELATING AND CORRELATING WITH SPO2 MONITOR. AWARE OF RESULTS, NO NEW ORDERS AT THIS TIME. PT ON NRB AND VAPORTHERM AT THIS TIME. NURSE AWARE OF PT STATUS.
--- NOTE | 2020-07-19 17:06 | NUR ---
RT at pt bedside for ABGs.
[2020-07-19 17:09] VITALS: BP 113/52
[2020-07-19 17:10] LABS: BASOPHILS # (AUTO) 0.2 K/uL (0.00-0.22); BASOPHILS % (AUTO) 1.3 % (0.0-2.0); EOSINOPHILS # (AUTO) 0.1 K/uL (0-0.4); EOSINOPHILS % (AUTO) 0.4 % (0.0-4.0); HEMATOCRIT 40.2 % (36-48); HEMOGLOBIN 12.3 g/dL (12.0-16.0); LYMPHOCYTES # (AUTO) 1.8 K/uL (2.5-16.5); LYMPHOCYTES % (AUTO) 11.3 % (20.5-51.1); MEAN CORPUSCULAR HEMOGLOBIN 26 pg (27-31); MEAN CORPUSCULAR HGB CONC 31 g/dL (33-37); MEAN CORPUSCULAR VOLUME 86.3 fL (80-94); MONOCYTES # (AUTO) 0.8 K/uL (0.8-1.0); MONOCYTES % (AUTO) 5.3 % (1.7-9.3); NEUTROPHILS # (AUTO) 12.7 K/uL (1.8-7.7); NEUTROPHILS % (AUTO) 81.7 % (42.2-75.2); PLATELET COUNT (AUTO) 398 K/uL (140-450); RED BLOOD CELL COUNT(AUTO) 4.65 MIL/uL (4.20-5.40); RED CELL DISTRIBUTION WIDTH 18.5 % (11.6-13.7); WHITE BLOOD COUNT (AUTO) 15.6 K/uL (4.8-10.8)
--- NOTE | 2020-07-19 17:12 | NUR ---
Collected Covid swab, walked to lab at this time.
--- NOTE | 2020-07-19 17:17 | NUR ---
recived pt in er dr lancaster at bedside placed pt on high flow 100%with a flow of 40pt sat in low 80s dr mary abgs drawn and results given to dr hensley will continue to monitor
--- NOTE | 2020-07-19 17:19 | NUR ---
Inserted 16F perez catheter for pending admission, urine output noted on insertion, not enough for Ua collection for send out.
--- NOTE | 2020-07-19 17:21 | NUR ---
recived pt in er o dr hensley at bedside placed pt on high flow 100 5 with flow of 40 dr aware abgs drawn and shown to dr fuentes with severe hypoxia will continue to monitor
[2020-07-19 17:25] LABS: ALBUMIN 2.6 g/dL (3.4-5.0); CARBON DIOXIDE 29.5 mmol/L (21-32); CREATININE 0.8 mg/dL (0.6-1.3); POTASSIUM 3.5 mmol/L (3.5-5.1); TOTAL BILIRUBIN 0.3 mg/dL (0.0-1.0)
[2020-07-19 17:28] LABS: PROTHROMBIN TIME 11.4 secs (10.8-13.4)
--- NOTE | 2020-07-19 17:32 | NUR ---
LACTIC ACID 3.1, SODIUM 158--CRITICAL VALUES RECEIVED FROM LAB. DR JO MADE AWARE.
[2020-07-19] MEDS ORDERED: NACL 0.9% 2,000 ML IV ONE (17:35)
[2020-07-19 17:36] LABS: CREATINE KINASE MB 0.1 ng/mL (0-3.6)
--- NOTE | 2020-07-19 18:03 | NUR ---
Re-checked perez for urine, not enough in tubing for UA collection. Will continue to monitor.
[2020-07-19 19:00] LABS: APPEARANCE,URINE SL CLOUDY (CLEAR); BILIRUBIN,URINE NEGATIVE (NEGATIVE); BLOOD, URINE 2+ (NEGATIVE); COLOR,URINE YELLOW (YELLOW); LEUKOCYTE ESTERASE ,URINE 2+ (NEGATIVE); NITRITE, URINE NEGATIVE (NEGATIVE); PH,URINE 5.5 (5.0-9.0); UGLUCOSE NEGATIVE (NEGATIVE)
--- NOTE | 2020-07-19 19:12 | NUR ---
Gave report to Jazmín RN, and ALEXANDRA Chen. Transfer of care at this time.
--- NOTE | 2020-07-19 19:15 | NUR ---
PT LAYING IN SEMI-FOWLERS, AOx0, LOW BP, PATIENT POSITIONED FOR COMFORT; BEDRAILS UP X2; BED DOWN. PT ON NON-REBREATHER 15L AND NC 40L.
--- NOTE | 2020-07-19 19:15 | NUR ---
Received report from ALEXANDRA Segura.
[2020-07-19 19:25] LABS: WBC,URINE 16-25 (MOD) /HPF (0-5)
--- NOTE | 2020-07-19 19:45 | NUR ---
REPORT CALLED TO ODILON FOR CONTINUITY OF CARE
--- NOTE | 2020-07-19 19:49 | NUR ---
LAB WITH PATIENT DRAWING BLOOD
[2020-07-19 20:00] VITALS: BP 93/44
--- NOTE | 2020-07-19 20:00 | NUR ---
RECEIVED PHONE REPORT FROM ER NURSE LUNA PT IN STABLE CONDITION.
--- NOTE | 2020-07-19 20:09 | NUR ---
Patient will be admitted to care of DR. HIGGINBOTHAM. Admited to TELEMETRY. Will go to room 110A. Belongings list completed. Report to ODILON.
--- NOTE | 2020-07-19 20:35 | NUR ---
PT BROUGHT UP BY TORIE AND WAS TRANSFERRED TO ROOM 110A. PT IS AOX1, SHE IS AWAKE AND ALERT BUT DOESN'T ANSWER QUESTIONS, SHE WILL LOOK AT YOU BUT NOT NECESSARILY TRACK A PERSON WITH HER EYES. EYES ARE EQUAL AND REACTIVE TO LIGHT. HER SKIN IS INTACT EXCEPT FOR 3 SMALL WOUNDS ON RIGHT FOOT AND OPEN AREA ON LEFT FOOT WELL RIGHT HIP PRESSURE WOUND OVER MARICARMEN PROMINENCE. PT ALSO RUNNING 15 LITERS NON REBREATHER AND 30 LITERS HI FLOW N/C. SHE HAS A LEFT WRIST 18G AND A RIGHT WRIST 20G.PT HAS A G TUBE WHICH IS INTACT,PT ALSO HAS A NEWLY INSERTED NOEL CATHETER DRAINING YELLOW URINE. PT IS BEDBOUND AND UNABLE TO AMBULATE. RESPIRATIONS EVEN AND UNLABORED WITH SUPPLEMENTAL 02. V/S FOLLOWS; T 97.4 P 103 R 20 B/P 93/44 02 98% WITH 15 LITERS NON REBREATHER AND 30 LITERS HI FLOW N/C. PT HAS NO S/S OF PAIN OR DISTRESS NOTED. ALL ORDERED PRECAUTIONS IN PLACE.
--- NOTE | 2020-07-19 21:15 | NUR ---
NORMAL SALINE HUNG AND RUNNING AT 60MLS/HR ORDERED. PT TURNED, CHANGED AND REPOSITIONED IN BED. LACTIC ACID REDRAW RESULT CAME BACK [facility] LAB, LATEST LAB IS 3.3 TRENDING UP MD HIGGINBOTHAM TESTED , AM REDRAW OF LACTIC ACID ORDERED.
[2020-07-19] MEDS ORDERED: CLONIDINE HYDROCHLORIDE 0.1 MG TAB PO PRN (22:00)
[2020-07-19] MEDS ORDERED: POTASSIUM CHLORIDE 10 MEQ TABER PO PRN (22:00)
[2020-07-19] MEDS ORDERED: DOCUSATE SODIUM 100 MG GELCAP PO PRN (22:00)
[2020-07-19] MEDS ORDERED: MAGNESIUM HYDROXIDE 2400 MG/30 ML UDC PO PRN (22:00)
[2020-07-19] MEDS ORDERED: SODIUM PHOSPHATE PEDIATRIC 67.5 ML ENEM RC PRN (22:00)
[2020-07-19] MEDS ORDERED: ACETAMINOPHEN 325 MG TAB PO PRN (22:00)
[2020-07-19] MEDS ORDERED: bisacodyL 10 MG SUPP RC PRN (22:00)
[2020-07-19] MEDS ORDERED: ONDANSETRON 4 MG/2 ML VIAL IM/IVP PRN (22:00)
[2020-07-19] MEDS ORDERED: VANCOMYCIN PER PHARMACY MC PRN (22:00)
[2020-07-19] MEDS ORDERED: HYDROcodone/APAP 7.5/325 MG 1 TAB PO PRN (22:00)
--- NOTE | 2020-07-19 22:00 | NUR ---
MD HIGGINBOTHAM MADE AWARE OF ELEVATED D-DIMER LEVEL AND ELEVATED TROPONIN LEVEL . AM TROPONIN DRAW SCHEDULED. MD HIGGINBOTHAM WILL FOLLOW UP WITH CT ANGIO OF THE CHEST TOMORROW.
[2020-07-19 22:48] LABS: CHOL/HDL RATIO 4.1 (1-4.5); FREE T4 (FREE THYROXINE) 1.19 ng/dL (0.76-1.46); MAGNESIUM 2.9 mg/dL (1.8-2.4); PHOSPHORUS 3.4 mg/dL (2.5-4.9); THYROID STIMULATING HORMONE 1.46 uIU/mL (0.34-3.74)
[2020-07-19] MEDS: NACL 0.9% 1,000 ML IV SCH (22:48)
--- NOTE | 2020-07-20 00:30 | NUR ---
PT WAS TURNED, CHANGED AND REPOSITIONED IN BED V/S FOLLOWS: T 99.6 P 106 R 20 B/P 102/50 02 98% ON 30 LITERS VIA HIGH FLOW N/C AND 15 LITERS NON REBREATHER. ALL ORDERED PRECAUTIONS IN PLACE.
[2020-07-20 04:00] VITALS: BP 114/63
--- NOTE | 2020-07-20 04:30 | NUR ---
PT WAS TURNED, AND REPOSITIONED IN BED 02 RUNNING ORDERED V/S FOLLOWS: T 97.9 P 100 R 20 B/P 114/65 02 100. ALL ORDERED PRECAUTIONS IN PLACE. URINE OUTPUT IS 300.
[2020-07-20] MEDS: PIPERACILLIN/TAZOBACTAM 3.375 GM in DEXTROSE 5% 50 ML IV SCH ×3 (05:00→21:00)
[2020-07-20 05:57] LABS: BASOPHILS % (AUTO) 0.2 % (0.0-2.0); EOSINOPHILS % (AUTO) 0.2 % (0.0-4.0); HEMATOCRIT 35.6 % (36-48); HEMOGLOBIN 10.9 g/dL (12.0-16.0); LYMPHOCYTES # (AUTO) 1.6 K/uL (2.5-16.5); LYMPHOCYTES % (AUTO) 8.4 % (20.5-51.1); MEAN CORPUSCULAR HEMOGLOBIN 27 pg (27-31); MEAN CORPUSCULAR HGB CONC 31 g/dL (33-37); MONOCYTES # (AUTO) 0.5 K/uL (0.8-1.0); MONOCYTES % (AUTO) 2.7 % (1.7-9.3); NEUTROPHILS # (AUTO) 16.5 K/uL (1.8-7.7); NEUTROPHILS % (AUTO) 88.5 % (42.2-75.2); PLATELET COUNT (AUTO) 296 K/uL (140-450); RED BLOOD CELL COUNT(AUTO) 4.04 MIL/uL (4.20-5.40); RED CELL DISTRIBUTION WIDTH 18.8 % (11.6-13.7); WHITE BLOOD COUNT (AUTO) 18.7 K/uL (4.8-10.8)
--- NOTE | 2020-07-20 06:30 | NUR ---
ALEAN HUNG AND RUNNING ORDERED. ALL ORDERED PRECAUTIONS IN PLACE.
[2020-07-20] MEDS ORDERED: PIPERACILLIN/TAZOBACTAM 3.375 GM VIAL IV ONE (06:33)
[2020-07-20 07:05] LABS: ANION GAP 11.7 (8-16); CREATININE 0.5 mg/dL (0.6-1.3); POTASSIUM 3.7 mmol/L (3.5-5.1)
--- NOTE | 2020-07-20 07:22 | NUR ---
RECEIVED REPORT FROM WATER PURIFIER OPERATOR RN FOR CONTINUITY OF CARE. PATIENT RESTING IN BED, EYES OPEN, NO TRACKING. IV TO LEFT HAND 18 G INFUSING NS@ 60ML/HR, SECOND IV SITE RIGHT WRIST 20G, PATENT AND DRESSING INTACT. G TUBE IN PLACE, NO CURRENT FEEDING. PENDING FNS CONSULT, PER WATER PURIFIER OPERATOR RN. PATIENT IS ON 30L 100% HIGH FLOW PLUS 15L NRB. SINUS TACHYCARDIA, HR 103. BILATERAL HIP PRESSURE ULCER, BILATERAL FEET DTI, COVERED WITH DRESSING AND HEEL PROTECTOR. SAFETY MEASURES IN PLACE, WILL CONTINUE TO MONITOR.
--- NOTE | 2020-07-20 07:29 | NUR ---
RECEIVED A CALL FROM LAB, CRITICAL LAB VALUE TROPONIN 0.161, SODIUM 159, BUN 24@ [phone], INFORMED DR. HIGGINBOTHAM. NO NEW ORDERS OBTAINED.
--- NOTE | 2020-07-20 07:30 | NUR ---
RECEIVED PT ON HIGH FLOW 30 L FIO2 100% AND NRB, SPO2 100%. NRB REMOVED SPO2 NOW 95%. PT NOT IN ANY DISTRESS AT THIS TIME. WILL CONTINUE TO MONITOR.
[2020-07-20 07:33] VITALS: BP 108/66
--- NOTE | 2020-07-20 07:37 | NUR ---
PER PT. NRB REMOVED AND PATIENT TOLERATED WELL WITH 30L HIGH FLOW. WILL CONTINUE TO CLOSELY TO MONITOR.
[2020-07-20 08:00] VITALS: BP 106/66
--- NOTE | 2020-07-20 08:15 | NUR ---
PATIENT HAS BEEN SCREENED AND CATEGORIZED HIGH NUTRITION RISK. PATIENT WILL BE SEEN WITHIN 1-2 DAYS OF ADMISSION. 07/20/20 - 07/21/20 HOLGER MARTINEZ MBA, RD
[2020-07-20] MEDS: MULTIVITAMIN 1 TAB PO SCH (09:00)
--- NOTE | 2020-07-20 10:39 | NUR ---
NEW IV INSERTED AT LEFT AC FOR CT ANGIO OF CHEST WITH CONTRAST. Addendum: 07/20/20 at 1041 by Tam Méndez RN 20G
[2020-07-20] MEDS: VANCOMYCIN 750 MG in DEXTROSE 5% 250 ML IV SCH (11:08)
[2020-07-20 12:00] VITALS: BP 106/66
--- NOTE | 2020-07-20 12:15 | NUR ---
FIO2 TITRATED TO 85%. PT NOT IN ANY DISTRESS AT THIS TIME. SPO2 100%, WILL CONTINUE TO MONITOR.
--- NOTE | 2020-07-20 13:28 | NUR ---
FIO2 TITRATED TO 75% NURSE MADE AWARE. SPO2 100%. PT NOT IN ANY DISTRESS AT THIS TIME.
--- NOTE | 2020-07-20 14:22 | NUR ---
PATIENT WAS PICKED UP BY THE VIDEO TAPE DUPLICATOR [facility] TO HAVE CT CHEST ANGIO. WILL FOLLOW UP.
--- NOTE | 2020-07-20 14:50 | NUR ---
PATIENT WAS BROUGHT BACK. PUT BACK ON 30L HIGH FLOW WITH 75%. PATIENT'S O2 SAT 100%, IN STABLE CONDITION.
--- NOTE | 2020-07-20 15:50 | NUR ---
PT REMAINS ON HIGH FLOW NC WITH NO SIGNS/SYMPTOMS OF RESPIRATORY DISTRESS. LITER FLOW ADJUSTED TO 25LPM AND FIO2 TITRATED TO 55%. SPO2 REMAINS 99%, NURSE MADE AWARE. WILL CONTINUE TO MONITOR.
--- NOTE | 2020-07-20 15:51 | NUR ---
SPOKE WITH DIMAS/GUSTAVO OF [facility]. PATIENT WAS ON G TUBE FEEDING WITH GLUCERNA 1.2@ 50CC/HR X 20HRS, FWF WITH 200ML Q6H. WILL INFORM MD AND CONTINUE WITH G TUBE FEEDING.
[2020-07-20 16:00] VITALS: BP 106/66
[2020-07-20] MEDS: NACL 0.9% 1,000 ML IV SCH (16:03)
[2020-07-20] MEDS: DEXT 5% / NACL 0.45% 1,000 ML IV SCH (18:20)
--- NOTE | 2020-07-20 18:30 | NUR ---
STARTED G TUBE FEEDING GLUCERNA 1.2 @ 10ML/HR, INCREASE 10ML/HR Q6H IF TOLERATE. GOAL IS 50ML/HR. FWF 200ML Q6H.
[2020-07-20] MEDS ORDERED: DEXTROSE 50% 50 ML SYR IVP PRN (18:50)
[2020-07-20] MEDS ORDERED: INSULIN LISPRO SLIDING SCALE 100 UNITS/ML VIAL SUBQ PRN (18:50)
--- NOTE | 2020-07-20 19:30 | NUR ---
RECEIVED PT SLEEPING , AWAKEABLE BY TOUCH . NID - O2 SAT WNL - ON HIGH FLOW O2 / NC . IV SITES INTACT AND PATENT . LOW JOSIANE SCALE . ON TELE MONITOR . ON G TUBE FEEDING - TOLERATING WELL - W/ RESIDUAL OF 10 CC - WILL INCREMENT THE FEEDING RATE ORDERED . W/ URINE NOEL CATH - DRAINING CLEAR U.O .SAFETY MEASURES IN PLACE - BED ALARM ON . PLAN OF CARE DISCUSSED BUT POOR UNDERSTANDING DUE TO MENTAL STATUS . WILL CONT. TO MONITOR . FLACC 0 .
--- NOTE | 2020-07-20 19:30 | NUR ---
ENDORSED PATIENT TO RADAR ENGINEER RN FOR CONTINUITY OF CARE. PATIENT IN STABLE CONDITION WITH HIGH FLOW 25L 55%, O2 SAT 100%.
[2020-07-20 20:00] VITALS: BP 90/60
[2020-07-20] MEDS: BLOOD GLUCOSE MONITORING 1 DEV DEV FS SCH (21:41)
[2020-07-20] MEDS: MELATONIN 3 MG TAB PO SCH (22:30)
[2020-07-21] VITALS (7 sets, daily range): BP systolic 90–128; BP diastolic 42–64
--- NOTE | 2020-07-21 | NUR ---
MADE ROUNDS , NO S/SX OF ACUTE DISTRESS NOTED . WILL CONT. TO MONITOR .
--- NOTE | 2020-07-21 02:00 | NUR ---
O2 SAT WNL . ON TELE MONITOR . WILL CONT. TO MONITOR .
--- NOTE | 2020-07-21 04:00 | NUR ---
MADE ROUNDS , NO S/SX OF ACUTE DISTRESS NOTED . WILL CONT. TO MONITOR .
[2020-07-21] MEDS: BLOOD GLUCOSE MONITORING 1 DEV DEV FS SCH ×4 (06:00→20:28)
[2020-07-21] MEDS: PIPERACILLIN/TAZOBACTAM 3.375 GM in DEXTROSE 5% 50 ML IV SCH ×3 (06:00→20:29)
[2020-07-21 06:21] LABS: BASOPHILS % (AUTO) 0.2 % (0.0-2.0); EOSINOPHILS # (AUTO) 0.2 K/uL (0-0.4); EOSINOPHILS % (AUTO) 1.8 % (0.0-4.0); HEMATOCRIT 27.1 % (36-48); HEMOGLOBIN 8.4 g/dL (12.0-16.0); LYMPHOCYTES # (AUTO) 1.2 K/uL (2.5-16.5); LYMPHOCYTES % (AUTO) 9.2 % (20.5-51.1); MEAN CORPUSCULAR HEMOGLOBIN 27 pg (27-31); MEAN CORPUSCULAR HGB CONC 31 g/dL (33-37); MEAN CORPUSCULAR VOLUME 87.1 fL (80-94); MONOCYTES # (AUTO) 0.5 K/uL (0.8-1.0); NEUTROPHILS # (AUTO) 11.3 K/uL (1.8-7.7); NEUTROPHILS % (AUTO) 84.8 % (42.2-75.2); PLATELET COUNT (AUTO) 242 K/uL (140-450); RED BLOOD CELL COUNT(AUTO) 3.11 MIL/uL (4.20-5.40); RED CELL DISTRIBUTION WIDTH 18.4 % (11.6-13.7); WHITE BLOOD COUNT (AUTO) 13.3 K/uL (4.8-10.8)
[2020-07-21 06:23] LABS: ANION GAP 7.8 (8-16); CARBON DIOXIDE 27.9 mmol/L (21-32); CREATININE 0.4 mg/dL (0.6-1.3)
[2020-07-21 06:26] LABS: POTASSIUM 2.7 mmol/L (3.5-5.1)
--- NOTE | 2020-07-21 06:26 | NUR ---
SERUM K 2.7 - RELAYED TO DR. GRIFFITH - WAITING FOR RESPONSE
--- NOTE | 2020-07-21 07:08 | NUR ---
RECEIVED PT ON HIGH FLOW 25LPM 33 DEGREE TEMP. AND FIO2 TITRATED TO 28%. PT IS NOT ALERT BUT IS NOT DEMONSTRATING SIGNS/SYMPTOMS OF RESPIRATORY DISTRESS. WILL CONTINUE TO MONITOR.
--- NOTE | 2020-07-21 07:15 | NUR ---
RECEIVED REPORT FROM YARD DRIVER RN FOR CONTINUITY OF CARE. PATIENT RESTING IN BED IN RIGHT LATERAL POSITION. AWAKE, BUT NOT ALERT. PATIENT IS ON 25LPM 28% FIO2 HIGH FLOW. O2 SAT 99%, HR 89. NO RESPIRATORY DISTRESS NOTED. IV TO THE LEFT 20 G INFUSING D5 1/2 NS @ 50ML/HR. IV TO LEFT WRIST 18G, RIGHT WRIST 20G SALINE LOCK. G TUBE FEEDING WITH GLUCERNA 1.2 @30ML/HR. PER YARD DRIVER, PATIENT TOLERATED G TUBE FEEDING WELL. SAFETY MEASURES IN PLACE, WILL CONTINUE TO MONITOR.
[2020-07-21] MEDS ORDERED: POTASSIUM CHLORIDE 40 MEQ, LIDOCAINE MPF 1% 25 MG in NACL 0.9% 250 ML IV SCH (08:00)
[2020-07-21] MEDS ORDERED: POTASSIUM CHLORIDE 20% 40 MEQ/15 ML UDC PO SCH (08:00)
[2020-07-21 08:07] LABS: T4 (THYROXINE) 6.8 ug/dL (4.5-12.0)
[2020-07-21] MEDS: MULTIVITAMIN 1 TAB PO SCH (08:42)
--- NOTE | 2020-07-21 09:45 | NUR ---
SKIN ASSESSMENT DONE WITH PRIMARY RN. PT. ADMITTED FROM SNF WITH INITIAL DX OF DECREASED O2 SATURATION AT 77%. PT. ADMITTED WITH MULTIPLE PRESSURE INJURIES AND JOSIANE SCALE AT VERY HIGH RISK, PT ADMITTED WITH HX OF COVID POSITIVE. PATIENT ALSO HAS HISTORY OF ALZHEIMER'S DEMENTIA, METABOLIC CEPHALOPATHY, HYPERTENSION AND DYSPHAGIA WITH G-TUBE STATUS. LAB: H/H 8.4/27.1, ALBUMIN 2.6 AND PT/INR 11.4/1.15. ALL ABOVE INFORMATION OBTAIN FROM PT H&P. PT. IS ON 25L NC HI-FLOW, HOB ELEVATED,F/C PATENT WITH SMALL AMOUNT YELLOW URINE OUTPUT OBSERVED, SMALL SOFT BM X1 DURING ASSESSMENT, BILATERAL LOWER LEGS SEVERE CONTRACTURE. POC DISCUSSED WITH PRIMARY RN. COMORBIDITIES RELATED TO DELAY WOUND HEALING AND FURTHER SKIN BREAKS: HYPOXEMIC DECREASE TISSUE PERFUSION, EDEMA TO EXTREMITIES, DECREASE MOBILITY AND FUNCTIONAL ABILITIES AND HOB ELEVATED THE MAJORITY OF TIMES DUE TO MEDICAL REASONS. INTEGUMENTARY: -GT SANCHEZ-STOMA SKIN DRY AND INTACT -PRESSURE INJURY LEFT TROCHANTER DTI, CENTER OF WOUND BED 1X2 CM HEALING SCAR TISSUE, AREA DRY, SANCHEZ WOUND SKIN AND SURROUNDING TISSUE DARK PURPLE FURTHER DAMAGE INDICATED, ENTIRE AREA MEASURED 4X3 CM SKIN INTACT. -PRESSURE INJURY STAGE 2 LEFT PLANTAR 1ST METATARSAL 2X2CM CLEAR FLUIDS BLISTER, SANCHEZ WOUND WRINKLE INTACT SKIN -LEFT HEEL BLANCHABLE REDNESS 1X1CM, MUSHY WITH SKIN INTACT -PRESSURE INJURY LEFT MEDIAL FOOT 2X0.5CM DTI 100% MAROON -PRESSURE INJURY STAGE 1 LEFT LATERAL FOOT MULTIPLE NON-BLANCHABLE REDNESS TO BONY PROMINENCES WITH LARGEST 1X1.5CM -PRESSURE INJURY RIGHT TROCHANTER STAGE 2, 1X1CM, SUPERFICIAL DEPTH, WOUND BED 100% GRANULATING, WOUND BED MOIST, NO ODOR, SANCHEZ WOUND HEALED SCAR TISSUE, WITH SURROUNDING REDNESS INDICATED FURTHER DAMAGE. -PRESSURE INJURY UN-STAGEABLE RIGHT HALLUX 1X1CM, RIGHT 4TH DIGIT TOE 0.5X0.5CM AND 5TH DIGIT TOE 0.5X0.5CM ALL 3 DIGITS WITH STABLE BLACK/BROWN NECROTIC TISSUE, NO ODOR, SANCHEZ WOUND SKIN DRY INTACT. -RIGHT HEEL BLANCHABLE REDNESS 1X1CM, MUSHY WITH SKIN INTACT -SACRALCOCCYX SKIN INTACT, HYPERPIGMENTATION, SKIN MOIST AND INTACT RECOMMENDATIONS -CLEANSE LEFT AND RIGHT TROCHANTERS WITH NS. PAT DRY, APPLY THIN LAYER OF Z-GUARD TO WOUND BED AND COVER WITH DRY DRESSING QD AND PRN IF SOILING, OFFLOADING HIPS -APPLY FOAM DRESSING PREVENTION TO SACRALCOCCYX CHANGE Q3D AND PRN IF SOILING, OFFLOADING AT ALL TIMES -APPLY SKIN PREP TO BILATERAL FOOT /TOES ULCERS BID AND STILL RUNNER -APPLY HEEL RAISERS TO BILATERAL HEELS -TURN AND REPOSITION PATIENT Q 2H -ASSESS AND MONITOR SKIN CONDITION DURING POSITION CHANGE -OFFLOAD BILATERAL HEELS BY PLACING PILLOWS UNDER CALVES AT ALL TIMES, UNLESS OTHERWISE CONTRAINDICATED -PRESSURE REDISTRIBUTION SURFACE THERAPY -KEEP SKIN CLEAN AND DRY AT ALL TIMES. PLEASE CONTACT WOUND CARE NURSE FOR ANY QUESTION AND CHANGE OF WOUND CONDITION.
--- NOTE | 2020-07-21 10:41 | NUR ---
SOCIAL WORK NOTE: Patient's Orientation Unable To Assess Information Provided By AARON - [facility] Comments SW CONTACTED PATIENT'S DAUGHTER. SW LEFT DAUGHTER SHYANN AND COMPLETED ASSESSMENT WITH [facility] STAFF. Medical Coding Manager, Realtionship and Phone Number KYAW PORTILLO DAUGHTER [phone] Healthcare Power of Marine Steamfitter No Does Patient Have a POLST No Identifying Problems No Social Work Triggers Is A Social Work Consult Needed No Mandate Report Filed No Explanation Of Identifying Problems PATIENT IS A 64-YEAR-OLD FEMALE ADMITTED FOR SEPSIS, PNA, AND HYPOXIA. PATIENT HAS PMHX OF SEVERE ALZHEIMER'S, METABOLIC ENCEPHALOPATHY, HYPERTENSION, AND DYSPHAGIA. Admitted From Long Term Care/[facility] Facility [facility] - [phone] Pre-Admission Level Of Functioning Status Total Care Level Of Functioning Comment PER AARON, PATIENT IS BED BOUND. Prior Resources/Services Used In Last 12 Months SNF Long Term Care Prior Resources/Service Comments AARON STATED PATIENT IS ASSISTED AND ON A BED HOLD. Prior DME No Prior DME Used Dialysis Comments N/A Patient Had Caregiver No Home Support No Caregiver Issues Financial Issues No Known Financial Issue Referral To The Financial Counselor Needed No Factors/Needs No D/C Needs Identified Pt/Rep Participated In Discharge Plan Yes Patient/Family Agress With Discharge Plan Yes Discharge Plan Comments TENTATIVE DISCHARGE PLAN IS FOR PATIENT TO RETURN TO [facility]. DC Plan Status Initiated
--- NOTE | 2020-07-21 11:00 | NUR ---
ASSISTED ADMINISTRATIVE PROGRAM SPECIALIST TO CLEAN AND TURN THE PATIENT. PATIENT HAD 1 SMALL BOWEL MOVEMENT, FORMED. PATIENT TOLERATED THE 25L HIGH FLOW OXYGEN WELL, FIO2 28%. O2 SAT 99%. WILL CONTINUE TO MONITOR.
[2020-07-21] MEDS: VANCOMYCIN 750 MG in DEXTROSE 5% 250 ML IV SCH (11:12)
[2020-07-21] MEDS ORDERED: Z-GUARD PASTE TP PRN (11:40)
--- NOTE | 2020-07-21 12:01 | NUR ---
PATIENT'S BS LEVEL 108, NO INSULIN COVERAGE NEEDED. FOUND PATIENT OFF HIGH FLOW, O2 SAT 97%, INFORMED RT FLORI. DC HIGH FLOW, PUT PATIENT ON 2L OXYGEN VIA NC. WILL CONTINUE TO CLOSELY TO MONITOR.
--- NOTE | 2020-07-21 12:04 | NUR ---
PT TAKEN OFF OF HIGH FLOW AND PLACED ON 2L NC, BEDSIDE AND NURSE BEDSIDE AWARE OF CHANGE. PT NOT IN ANY DISTRESS. WILL CONTINUE TO MONITOR. SPO2 96% AT THIS TIME.
--- NOTE | 2020-07-21 12:40 | NUR ---
PATIENT'S O2 SAT 100% WITH 2L OXYGEN VIA NC.
[2020-07-21] MEDS: Z-GUARD PASTE TP SCH (13:12)
--- NOTE | 2020-07-21 13:28 | NUR ---
07/21/20 RD INITIAL ASSESSMENT COMPLETED PLEASE REFER TO NUTRITION ASSESSMENT UNDER CARE ACTIVITY FOR ESTIMATED NUTRITIONAL NEEDS. 1. CONTINUE GLUCERNA 1.2 @ 50 ML/HR X 24 HR -THIS PROVIDES 1200 ML OF VOLUME, 1440 KCAL AND 72 GM OF PROTEIN. MEETS 96% OF ESTIMATED KCAL NEEDS AND 100% OF ESTIMATED PROTEIN NEEDS. 2. CONTINUE FREE WATER FLUSH PER MD 3. RD TO FOLLOW-UP 2-3 DAYS, HIGH RISK JENNIFER NUNO RD
--- NOTE | 2020-07-21 14:10 | NUR ---
DC PLANN[age] YRS OLD FEMALE PATIENT WAS ADMITTED FROM [facility] WITH A DX OF SEPSIS PNA, HYPOXIA . PT HAS A HX OF COVID PNEUMONIA, ALZHEIMER CVA G-TUBE DYSPHAGIA AND SEPSIS. CXR SHOWED PATCHY LEFT RETROCARDIAC OPACITY CT CHEST SHOWED NO PE. ON O2 25L/NC FIO2 28% SATING 99%. TROP 0.187,-0.161 RAPID COVID TEST NEGATIVE. ADMINISTERED IVF. IV ABX ZOSYN AND CONTINUED HOME MEDS. CONSULTED WITH NEPHRO, ID,CARDIO AND PULMO. DC PLAN TO GO BACK TO [facility] WHEN STABLE CM TO FOLLOW. Addendum: 07/23/20 at 1401 by Corazon Gill CM DC PVC MONITOR: PATIENT WILL BE DISCHARGED BACK TO [facility] TODAY. ROOM 50-A UNDER DR. QUIROZ. ARRANGED TRANSPORTATION WITH [facility] [phone] FOR 3:00 PM. Addendum: 07/23/20 at 1406 by Corazon Gill CM KANIKA PVC MONITOR NOTIFIED RN [facility] AND CALLED PATIENTS DAUGHTER KYAW PORTILLO [phone]. ALSO NOTIFIED [facility] OF TRANSPORTATION TIME
[2020-07-21] MEDS: DEXT 5% / NACL 0.45% 1,000 ML IV SCH (14:11)
--- NOTE | 2020-07-21 15:42 | NUR ---
FOUND PT ON ROOM AIR SPO2 97%. PT NOT IN ANY DISTRESS AND NOT SOB. WILL CONTINUE TO MONITOR.
[2020-07-21 16:27] LABS: ANION GAP 9.4 (8-16); CARBON DIOXIDE 26.5 mmol/L (21-32); CREATININE 0.4 mg/dL (0.6-1.3); POTASSIUM 3.9 mmol/L (3.5-5.1)
--- NOTE | 2020-07-21 18:00 | NUR ---
PATIENT TOLERATED FEEDING WELL, NO RESIDUAL NOTED, INCREASED G TUBE FEEDING TO 50ML/HR. WILL CONTINUE TO MONITOR.
--- NOTE | 2020-07-21 19:29 | NUR ---
ENDORSED PATIENT TO BIOMASS FACILITATOR RN FOR CONTINUITY OF CARE. PATIENT IN STABLE CONDITION, O2 SAT 100% ON ROOM AIR.
--- NOTE | 2020-07-21 19:30 | NUR ---
RECEIVING PATIENT FROM AM NURSE FOR CONTINUITY OF CARE. PATIENT ON TELE MONITOR. PATIENT AWAKE, NOT ALERT. PATIENT IS ON ROOM AIR, O2 SAT 100%, NO SIGN OF DISTRESS NOTED. SKIN WARM, DRY, NON-DIAPHORETIC. IV ON LEFT AC 20G, IS INFUSING FLUID. NOEL CATHETER IN PLACE, CLEAR YELLOW URINE. G-TUBE IN PLACE, FEEDING WITH GLUCERNA 1.2 @ 50ML/HR, WATER FLUSH 200ML Q6H. PATIENT TOLERATED WELL. PLAN OF CARE DISCUSSED. PRECAUTION IN PLACE. HOB ELEVATED. CALL LIGHT WITHIN REACH. WILL CONTINUE TO MONITOR.
--- NOTE | 2020-07-21 20:28 | NUR ---
BLOOD SUGAR CHECK 98, NO INSULIN GIVEN. SCHEDULE MEDICATION GIVEN VIA G-TUBE. RESIDUAL 5ML. PATIENT TOLERATED FEEDING. PRECAUTION IN PLACE. HOB ELEVATED. CALL LIGHT WITHIN REACH. WILL CONTINUE TO MONITOR.
[2020-07-21] MEDS: MELATONIN 3 MG TAB PO SCH (20:30)
--- NOTE | 2020-07-21 21:15 | NUR ---
PT SLEEPING COMFORTABLY ON RA W/ NO DISTRESS NOTED. CURRENT SPO2 99% WILL CONTINUE TO MONITOR
--- NOTE | 2020-07-21 22:47 | NUR ---
CONTACTED DR GRIFFITH TO NOTIFY THAT PATIENT IS CONTRACTION SO US TECH UNABLE TO DO US. PER DR GRIFFITH, DC US BILATERAL LOWER EXTREMITY R/O DVT AND PAD. WILL DC ORDER.
[2020-07-22] VITALS: BP 106/57
--- NOTE | 2020-07-22 | NUR ---
ROUND CHECK. PATIENT IS AWAKE, EYE OPEN SPONTANEOUS. NO SIGN OF RESPIRATORY DISTRESS NOTED, O2 SAT 99%. HOB ELEVATED. PRECAUTION IN PLACE. CALL LIGHT WITHIN REACH. WILL CONTINUE TO MONITOR.
--- NOTE | 2020-07-22 02:00 | NUR ---
PATIENT IS SLEEPING. CHEST RISE AND FALL NOTED. ASSIST MECHANICAL LABORATORY TECHNICIAN CHANGE PATIENT POSITION. PATIENT TOLERATED WELL. NO SIGN OF DISTRESS NOTED. HOB ELEVATED. CALL LIGHT WITHIN REACH. WILL CONTINUE TO MONITOR.
[2020-07-22 04:00] VITALS: BP 145/66
--- NOTE | 2020-07-22 04:00 | NUR ---
ROUND CHECK. PATIENT IS AWAKE, EYE OPEN SPONTANEOUS, NO SIGN OF DISTRESS NOTED. HOB ELEVATED. PRECAUTION IN PLACE. CALL LIGHT WITHIN REACH. WILL CONTINUE TO MONITOR.
[2020-07-22] MEDS: PIPERACILLIN/TAZOBACTAM 3.375 GM in DEXTROSE 5% 50 ML IV SCH ×3 (05:22→20:26)
--- NOTE | 2020-07-22 05:22 | NUR ---
MEDICATION GIVEN ORDERED. PATIENT TOLERATED WELL. HOB ELEVATED. CALL LIGHT WITHIN REACH. WILL CONTINUE TO MONITOR.
[2020-07-22 06:57] LABS: BASOPHILS % (AUTO) 0.1 % (0.0-2.0); EOSINOPHILS # (AUTO) 0.2 K/uL (0-0.4); EOSINOPHILS % (AUTO) 2.2 % (0.0-4.0); HEMATOCRIT 28.6 % (36-48); HEMOGLOBIN 9.3 g/dL (12.0-16.0); LYMPHOCYTES # (AUTO) 1.3 K/uL (2.5-16.5); LYMPHOCYTES % (AUTO) 13.9 % (20.5-51.1); MEAN CORPUSCULAR HEMOGLOBIN 28 pg (27-31); MEAN CORPUSCULAR HGB CONC 32 g/dL (33-37); MEAN CORPUSCULAR VOLUME 84.9 fL (80-94); MONOCYTES # (AUTO) 0.4 K/uL (0.8-1.0); MONOCYTES % (AUTO) 3.9 % (1.7-9.3); NEUTROPHILS # (AUTO) 7.4 K/uL (1.8-7.7); NEUTROPHILS % (AUTO) 79.9 % (42.2-75.2); PLATELET COUNT (AUTO) 260 K/uL (140-450); RED BLOOD CELL COUNT(AUTO) 3.37 MIL/uL (4.20-5.40); RED CELL DISTRIBUTION WIDTH 18.3 % (11.6-13.7); WHITE BLOOD COUNT (AUTO) 9.3 K/uL (4.8-10.8)
[2020-07-22 06:58] LABS: CREATININE 0.4 mg/dL (0.6-1.3)
--- NOTE | 2020-07-22 07:29 | NUR ---
ENDORSED PATIENT TO AM NURSE FOR CONTINUITY OF CARE. PATIENT IS STABLE.
--- NOTE | 2020-07-22 07:30 | NUR ---
RECEIVED REPORT FROM SALES SERVICE REPRESENTATIVE RN FOR CONTINUITY OF CARE. PATIENT IN BED, OPENS EYES AT TIMES, NO TRACKING. FLACC 0, NO SOB, RESPIRATIONS ARE EVEN AND UNLABORED. IV TO LEFT AC 20 G INFUSING D5 1/2NS@ 50ML/HR, OTHER IV SITE RIGHT WRIST 20G, LEFT HAND 18G PATENT AND DRESSING INTACT. G TUBE IN PLACE, CONNECTED TO FEEDING. ON ROOM AIR, O2SAT 98%. SR ON MONITOR. BILATERAL HIP PRESSURE ULCER, BILATERAL FEET DTI, COVERED WITH DRESSING AND HEEL PROTECTOR. NOEL INTACT AND PATENT. SAFETY MEASURES IN PLACE, WILL CONTINUE TO MONITOR.
[2020-07-22] MEDS: BLOOD GLUCOSE MONITORING 1 DEV DEV FS SCH ×4 (07:38→20:47)
[2020-07-22 08:00] VITALS: BP 134/62
--- NOTE | 2020-07-22 08:30 | NUR ---
OFF UNIT TO [facility] Addendum: 07/22/20 at 0955 by Mega Rice RN DISREGARD ABOVE NOTE
[2020-07-22] MEDS: MULTIVITAMIN 1 TAB PO SCH (08:33)
--- NOTE | 2020-07-22 09:30 | NUR ---
PT BACK FROM [facility] Addendum: 07/22/20 at 0955 by Mega Rice RN DISREGARD ABOVE NOTE
--- NOTE | 2020-07-22 09:45 | NUR ---
DUE MORNING MEDS GIVEN. TOLERATED PO MEDS WELL Addendum: 07/22/20 at 0955 by Mega Rice RN TOLERATED GT MEDS WELL. PT IS NPO
[2020-07-22] MEDS: DEXT 5% / NACL 0.45% 1,000 ML IV SCH (10:54)
--- NOTE | 2020-07-22 11:45 | NUR ---
RECEIVED CALL FROM LAB. URINE POSITIVE FOR PSEUDOMONAS AERUGINOSA MDRO WINDOW TINTER. DR GRIFFITH AND DR JOHNSON NOTIFIED NO NEW ORDERS
[2020-07-22 12:00] VITALS: BP 119/68
[2020-07-22] MEDS: Z-GUARD PASTE TP SCH (12:50)
[2020-07-22] MEDS ORDERED: VANCOMYCIN 1,000 MG in DEXTROSE 5% 250 ML IV SCH (13:00)
[2020-07-22] MEDS: ALBUTEROL SULFATE/IPRATROPIU 3 ML SOL IH PRN (14:10)
[2020-07-22] MEDS ORDERED: GENTAMICIN PER PHARMACY MC PRN (14:30)
--- NOTE | 2020-07-22 15:25 | NUR ---
PT IN BED WITH EYES OPEN. NO TRACKING. FLACC 0, RESPIRATIONS ARE EVEN AND UNLABORED
[2020-07-22 16:00] VITALS: BP 110/53
[2020-07-22] MEDS: GENTAMICIN 80 MG in DEXTROSE 5% 98 ML IV SCH ×2 (16:19→23:01)
--- NOTE | 2020-07-22 17:47 | NUR ---
AWAKE AND RESTING COMFORTABLY IN BED. NO S/S RESPIRATORY DISTRESS. NO C/O PAIN.
--- NOTE | 2020-07-22 19:10 | NUR ---
RECEIVED BEDSIDE REPORT FROM DAY SHIFT NURSE FOR CONTINUITY OF CARE. PT IS AWAKE WITH EYES OPEN. 2L O2 NC WITH O2 SAT AT 100%. NO RESPIRATORY DISTRESS NOTED. SR ON TELE MONITORING. G TUBE IN PLACE RUNNING GLUCERNA RUNNING AT 50 ML/ HR WITH WATER FLUSHES AT [address] Q6H. NOEL C[address] IN PLACE. OPTIFOAM IN PLACE ON BILATERAL HIPS WITH CLOSED WOUND AND DRESSING ON BILATERAL FEET WITH CLOSED WOUNDS. SKIN IS WARM AND DRY. IV IS IN THE LEFT AC 20 GAUGE. RIGHT WRIST 20 GAUGE, AND LEFT HAND 18 GAUGE RUNNING D5 HALF NS AT 50 ML PER HOUR PER ORDER. FALL AND STANDARD PRECAUTIONS IN PLACE. PT IS STABLE AT THIS TIME.
--- NOTE | 2020-07-22 19:21 | NUR ---
ENDORSED TO TELEVISION INSTALLER HELPER FOR CONTINUITY OF CARE
[2020-07-22 20:00] VITALS: BP 116/66
[2020-07-22] MEDS: MELATONIN 3 MG TAB PO SCH (20:26)
--- NOTE | 2020-07-22 21:00 | NUR ---
PT IS AWAKE WITH EYES OPEN. TRACKS MOVEMENT WITH EYES. BREATHING IS UNLABORED ON 2L O2 NC. G TUBE RESIDUAL IS LESS THAN 5 ML. DIAPER IS DRY AND IN PLACE. NOEL CATH IN PLACE DRAINING YELLOW, CLEAR URINE. PADDED BOOTS IN PLACE. BED ALARM IS ON. PT IS STABLE.
--- NOTE | 2020-07-22 23:00 | NUR ---
ROUNDED ON PT. SHE IS ASLEEP IN SEMI FOWLERS POSITION. NO DISTRESS NOTED ON 2L O2 NC. BREATHING IS EVEN AND UNLABORED. G TUBE FEEDING IS INFUSING ORDERED. IV'S ARE FLUSHED AND PATENT. PT IS STABLE. WILL CONTINUE TO MONITOR.
[2020-07-23] VITALS: BP 120/47
--- NOTE | 2020-07-23 01:00 | NUR ---
PT HAD A BM IN DIAPER AND DIAPER WAS CHANGED. BM WAS BROWN, SOFT, AND SMALL IN SIZE. DRESSINGS ON WOUNDS WERE CHANGED. WOUNDS WERE CLEANSED WITH NS AND PATTED DRY. PT WAS REPOSITIONED.
--- NOTE | 2020-07-23 03:57 | NUR ---
RECEIVED REPORT OF PT.PT IS SLEEPING AT THIS TIME W/O S/S OF ANY DISTRESS.IVF AND GT FEEDING ARE IN PROGRESS.F/C PATENT.RESP.UNLABORED W/O2 AT 2L/NC. WILL CONTINUE MONITORING.
[2020-07-23 04:00] VITALS: BP 122/55
[2020-07-23] MEDS: PIPERACILLIN/TAZOBACTAM 3.375 GM in DEXTROSE 5% 50 ML IV SCH ×2 (04:55→13:22)
[2020-07-23] MEDS: BLOOD GLUCOSE MONITORING 1 DEV DEV FS SCH ×2 (06:00→11:21)
--- NOTE | 2020-07-23 06:20 | NUR ---
PT'S CONDITION IS STABLE.NO DISTRESS NOTED AT PRESENT TIME .BS=93 NO COVERAGE NEEDED.TURNED Q2H.
--- NOTE | 2020-07-23 07:30 | NUR ---
RECEIVED REPORT FROM ELECTRICIAN SECOND RN FOR CONTINUITY OF CARE. PATIENT IN BED, OPENS EYES AT TIMES, TRACKS AND RESPONDS TO NAME. FLACC 0, NO SOB, RESPIRATIONS ARE EVEN AND UNLABORED. IV TO LEFT AC 20 G INFUSING D5 1/2NS@ 50ML/HR, OTHER IV SITE RIGHT WRIST 20G, LEFT HAND 18G PATENT AND DRESSING INTACT. G TUBE IN PLACE, CONNECTED TO FEEDING. ON 2L O2 VIA NC, O2SAT 99%. SR ON MONITOR. BILATERAL HIP PRESSURE ULCER, BILATERAL FEET DTI, COVERED WITH DRESSING AND HEEL PROTECTOR. NOEL INTACT AND PATENT. SAFETY MEASURES IN PLACE, WILL CONTINUE TO MONITOR.
[2020-07-23 08:00] VITALS: BP 110/57
--- NOTE | 2020-07-23 08:30 | NUR ---
DUE MEDS GIVEN. TOLERATED GT MEDS WELL. REPOSITIONED PT. NOEL CARE DONE
[2020-07-23] MEDS: DEXT 5% / NACL 0.45% 1,000 ML IV SCH (08:50)
[2020-07-23] MEDS: MULTIVITAMIN 1 TAB PO SCH (08:58)
[2020-07-23] MEDS: GENTAMICIN 80 MG in DEXTROSE 5% 98 ML IV SCH (08:58)
--- NOTE | 2020-07-23 10:48 | NUR ---
PT AWAKE IN BED. EYES OPEN, TRACKS. NO APPARENT DISTRESS
[2020-07-23] MEDS ORDERED: IV Zosyn IV (10:58)
[2020-07-23] MEDS ORDERED: IV Gentamycin IV (10:58)
[2020-07-23 12:00] VITALS: BP 129/78
--- NOTE | 2020-07-23 12:15 | NUR ---
PT ASLEEP IN BED. FLACC 0 NO SOB
[2020-07-23] MEDS: Z-GUARD PASTE TP SCH (13:22)
--- NOTE | 2020-07-23 14:00 | NUR ---
REPORT GIVEN TO MARLENE MORRIS [place] [facility] [place]
[2020-07-23] MEDS: ALBUTEROL SULFATE/IPRATROPIU 3 ML SOL IH PRN (14:04)
--- NOTE | 2020-07-23 15:45 | NUR ---
PICKED UP BY [facility] TO [facility] [place]
== END 2020-07-23 15:45 | DRG 871 ==
LOC: MED 16:15 → MTU 17:57
PROVIDERS: ADMIT Emergency Medicine; ATTEND Emergency Medicine
PROC: 5A0935A Assistance with Respiratory Ventilation, Less than 24 Consecutive Hours, High Flow/Velocity Cannula (ICD-10-PCS; principal; 2020-07-20)
DX: A41.9 Sepsis, unspecified organism (principal); J69.0 Pneumonitis due to inhalation of food and vomit; G93.41 Metabolic encephalopathy; I21.4 Non-ST elevation (NSTEMI) myocardial infarction; E43 Unspecified severe protein-calorie malnutrition; J96.21 Acute and chronic respiratory failure with hypoxia; N39.0 Urinary tract infection, site not specified; E87.0 Hyperosmolality and hypernatremia; J98.11 Atelectasis; Z16.24 Resistance to multiple antibiotics; Z16.19 Resistance to other specified beta lactam antibiotics; J91.8 Pleural effusion in other conditions classified elsewhere; D68.59 Other primary thrombophilia; R65.20 Severe sepsis without septic shock; B96.5 Pseudomonas (aeruginosa) (mallei) (pseudomallei) as the cause of diseases classified elsewhere; E86.0 Dehydration; F02.80 Dementia in other diseases classified elsewhere, unspecified severity, without behavioral disturbance, psychotic disturbance, mood disturbance, and anxiety; G30.9 Alzheimer's disease, unspecified; I10 Essential (primary) hypertension; Z66 Do not resuscitate; E87.6 Hypokalemia; E87.8 Other disorders of electrolyte and fluid balance, not elsewhere classified; R31.9 Hematuria, unspecified; M85.80 Other specified disorders of bone density and structure, unspecified site; R13.12 Dysphagia, oropharyngeal phase; D63.8 Anemia in other chronic diseases classified elsewhere; I25.10 Atherosclerotic heart disease of native coronary artery without angina pectoris; E04.2 Nontoxic multinodular goiter; Z20.822 Contact with and (suspected) exposure to COVID-19; Z86.16 Personal history of COVID-19; Z86.73 Personal history of transient ischemic attack (TIA), and cerebral infarction without residual deficits; Z93.1 Gastrostomy status; Z79.899 Other long term (current) drug therapy; Z87.01 Personal history of pneumonia (recurrent); Z86.19 Personal history of other infectious and parasitic diseases
CPT/HCPCS: 36415; 36600; 71045; 71275; 76536; 80048; 80053; 80170; 80202; 81001; 82140; 82550; 82553; 82803; 82948; 83036; 83605; 83690; 83735; 83880; 84100; 84436; 84439; 84443; 84479; 84484; 85025; 85379; 85610; 85730; 86886; 86900; 86901; 87040; 87081; 87086; 93005; 94640; 96361; 96365; 96367; 99291; J1580; J1815; J2001; J2543; J3370; J3480; J7030; J7060; Q9967

== ENCOUNTER 2020-10-20 22:07 | Inpatient (IN) | payer OTHER ==
[~2020-10-20] VITALS: Ht 152.4 cm; Wt 39.9 kg
[~2020-10-20 22:07] MED LIST changes: +IV Gentamycin IV; +MELA3TER GT; -MELA3TER PO
[2020-10-20 22:08] VITALS: BP 94/49
--- NOTE | 2020-10-20 22:08 | NUR ---
PT NIXON LUNDS. TAKEN TO BED 4
[2020-10-20] MEDS ORDERED: NACL 0.9% 1,000 ML IV ONE (22:10)
--- NOTE | 2020-10-20 22:19 | NUR ---
Respiratory Therapist at bedside for respiratory intervention.
--- NOTE | 2020-10-20 22:20 | NUR ---
64 YO/F BIBA FROM [facility]. PATIENT PRESENTS GCS 10 (SPONTANEOUS, PURPOSEFUL, NON-VERBAL), S1S2 PRESENT PATIENT IS TACHYCARDIC AT 119HR, 94/49BP, AND TACHYPNEIC AT 24RR W FEVER OF 101.4. LUNG SOUNDS CLEAR THOUGHOUT. PATIENT HAS A GTUBE TO LUQ ABDOMINAL, BOWEL SOUNDS PRESENT. PATIENT HAS A WOUND TO BOTTOM OF R FOOT, TO L AND R BUTTOX, AND SACRAL, WOUNDS ARE BANDAGED. PATIENT LAYING IN BED LOCKED IN LOWEST POSITION, X2 SIDERAILS UP FPR PATIENT SAFETY. PMH:HTN, DIABETES, DEMENTIA, CVA NKA
[2020-10-20] MEDS ORDERED: TRAM50TA3 GT (22:33)
--- NOTE | 2020-10-20 22:33 | NUR ---
X-Ray at bedside.
[2020-10-20 22:34] LABS: BASOPHILS # (AUTO) 0.1 K/uL (0.00-0.22); BASOPHILS % (AUTO) 0.9 % (0.0-2.0); EOSINOPHILS % (AUTO) 0.1 % (0.0-4.0); HEMATOCRIT 35.2 % (36-48); HEMOGLOBIN 10.9 g/dL (12.0-16.0); LYMPHOCYTES # (AUTO) 2.4 K/uL (2.5-16.5); LYMPHOCYTES % (AUTO) 18.4 % (20.5-51.1); MEAN CORPUSCULAR HEMOGLOBIN 26 pg (27-31); MEAN CORPUSCULAR HGB CONC 31 g/dL (33-37); MEAN CORPUSCULAR VOLUME 82.8 fL (80-94); MONOCYTES % (AUTO) 7.8 % (1.7-9.3); NEUTROPHILS # (AUTO) 9.5 K/uL (1.8-7.7); NEUTROPHILS % (AUTO) 72.8 % (42.2-75.2); PLATELET COUNT (AUTO) 363 K/uL (140-450); RED BLOOD CELL COUNT(AUTO) 4.25 MIL/uL (4.20-5.40); RED CELL DISTRIBUTION WIDTH 16.5 % (11.6-13.7)
--- NOTE | 2020-10-20 22:43 | NUR ---
EKG PERFORMED AT BEDSIDE. EKG READS SINUS TACHYCARDIA @ 111
[2020-10-20] MEDS ORDERED: TTS3 GT (22:51)
[2020-10-20] MEDS ORDERED: [UNRECOGNIZED DRUG - CODE] GT (22:51)
[2020-10-20] MEDS ORDERED: ACET-2619 PO (22:51)
[2020-10-20] MEDS ORDERED: ASCO500T95 GT (22:51)
[2020-10-20 22:52] LABS: PROTHROMBIN TIME 11.5 secs (10.8-13.4)
[2020-10-20 22:56] LABS: ALBUMIN 2.1 g/dL (3.4-5.0); ANION GAP 9.5 (8-16); CARBON DIOXIDE 30.2 mmol/L (21-32); CREATININE 0.7 mg/dL (0.6-1.3); POTASSIUM 3.7 mmol/L (3.5-5.1); TOTAL BILIRUBIN 0.2 mg/dL (0.0-1.0)
--- NOTE | 2020-10-20 23:00 | NUR ---
Urine sample collected from patient via straight cath w total urine output of 200mL clear yellow urine.
[2020-10-20 23:27] LABS: APPEARANCE,URINE SL CLOUDY (CLEAR); BILIRUBIN,URINE NEGATIVE (NEGATIVE); BLOOD, URINE NEGATIVE (NEGATIVE); COLOR,URINE YELLOW (YELLOW); LEUKOCYTE ESTERASE ,URINE NEGATIVE (NEGATIVE); NITRITE, URINE NEGATIVE (NEGATIVE); PH,URINE 5.5 (5.0-9.0); UGLUCOSE NEGATIVE (NEGATIVE)
[2020-10-21] MEDS: NACL 0.9% 1,000 ML IV SCH ×3 (00:47→16:49)
--- NOTE | 2020-10-21 01:30 | NUR ---
Wounds photos of R foot, L and R buttocks, and sacral areas taken, and wounds re-dressed.
--- NOTE | 2020-10-21 03:30 | NUR ---
Patient bed locked in lowest position, x2 siderails up for patient safety. Patient laying in bed w eyes open, breathing even and unlabored. VSS. NAD noted, will continue to monitor.
--- NOTE | 2020-10-21 04:15 | NUR ---
Patient bed locked in lowest position, x2 siderails up for patient safety. Patient laying in bed w eyes closed, breathing even and unlabored. NS fluids running at 120mL/hr w 580mL of 0.9 NS remaining. VSS. NAD noted, will continue to monitor.
--- NOTE | 2020-10-21 06:15 | NUR ---
Patient bed locked in lowest position, x2 siderails up for patient safety. Patient laying in bed R lateral position, w eyes closed, breathing even and unlabored. 0.9NS fluids running at 120mL/hr w 340mL of 0.9NS remaining. VSS. NAD noted, will continue to monitor.
--- NOTE | 2020-10-21 06:17 | NUR ---
PATIENT AWAKE. PROVIDED PERINEAL CARE AND DIAPER CHANGE TO PATIENT.
--- NOTE | 2020-10-21 06:30 | NUR ---
Patient awake, GCS 11. Patient is moaning and wincing. made aware of patient pain. New orders for pain medication of morphine per .
[2020-10-21] MEDS ORDERED: MORPHINE SULFATE 2 MG/ML SYR IVP PRN ×2 (06:45→08:55)
--- NOTE | 2020-10-21 07:19 | NUR ---
Pt report given to ALEXANDRA BATISTA. Transfer of care at this time.
--- NOTE | 2020-10-21 07:35 | NUR ---
report given to Ml MORRIS from [facility] unit. pt currently a/o x 0 gcs 11. currently a/o x 0 gcs 11. bedbound. IV site patent with NS running at maintenance of 120cc/hr.
[2020-10-21 08:00] VITALS: BP 114/51
--- NOTE | 2020-10-21 08:00 | NUR ---
Pt admitted to room 110A via gurney from ED. Received report from ED nurse. Pt alert and awake, nonverbal, unable to make needs known or follow commands. Pt is calm and quiet. Right hand 20G IV intact and asymptomatic. Wound dressings present to sacrum, left buttock, and right buttock.
[2020-10-21] MEDS ORDERED: DOCUSATE SODIUM 100 MG GELCAP PO PRN (08:55)
[2020-10-21] MEDS ORDERED: ZOLPIDEM 5 MG TAB PO PRN (08:55)
[2020-10-21] MEDS ORDERED: POTASSIUM CHLORIDE 10 MEQ TABER PO PRN (08:55)
[2020-10-21] MEDS ORDERED: ONDANSETRON 4 MG/2 ML VIAL IM/IVP PRN (08:55)
[2020-10-21] MEDS ORDERED: LORazepam 2 MG/ML VIAL IM/IVP PRN (08:55)
[2020-10-21] MEDS ORDERED: HYDROcodone/APAP 5/325 MG 1 TAB TAB PO PRN (08:55)
[2020-10-21] MEDS ORDERED: MAG SULF 2000 MG/WATER PREMIX 50 ML IV PRN (08:55)
[2020-10-21] MEDS ORDERED: cloNIDine-TTS3 0.3 MG/24 HR 1 EA PATCH TD SCH (09:00)
[2020-10-21] MEDS ORDERED: ASCORBIC ACID 500 MG TAB GT SCH (09:00)
--- NOTE | 2020-10-21 09:01 | NUR ---
PATIENT HAS BEEN SCREENED AND CATEGORIZED HIGH NUTRITION RISK. PATIENT WILL BE SEEN WITHIN 1-2 DAYS OF ADMISSION. 10/21/20-10/22/[address]
[2020-10-21] MEDS: traMADol 50 MG TAB GT SCH (09:39)
[2020-10-21 10:41] LABS: EOSINOPHILS # (AUTO) 0.2 K/uL (0-0.4); EOSINOPHILS % (AUTO) 4.3 % (0.0-4.0); HEMATOCRIT 26.4 % (36-48); HEMOGLOBIN 8.7 g/dL (12.0-16.0); LYMPHOCYTES % (AUTO) 24.3 % (20.5-51.1); MEAN CORPUSCULAR HEMOGLOBIN 26 pg (27-31); MEAN CORPUSCULAR HGB CONC 33 g/dL (33-37); MONOCYTES # (AUTO) 0.4 K/uL (0.8-1.0); MONOCYTES % (AUTO) 9.9 % (1.7-9.3); NEUTROPHILS # (AUTO) 2.4 K/uL (1.8-7.7); NEUTROPHILS % (AUTO) 60.5 % (42.2-75.2); PLATELET COUNT (AUTO) 244 K/uL (140-450); RED CELL DISTRIBUTION WIDTH 18.9 % (11.6-13.7)
[2020-10-21 10:52] LABS: ANION GAP 7.9 (8-16); CARBON DIOXIDE 26.6 mmol/L (21-32); CREATININE 0.7 mg/dL (0.6-1.3); POTASSIUM 3.5 mmol/L (3.5-5.1)
--- NOTE | 2020-10-21 11:00 | NUR ---
Received wound care order from Dr Oh. Order noted and carried out. Wound care for pressure injuries to sacral, and left and right buttocks provided per physician order.
[2020-10-21 11:11] LABS: PHOSPHORUS 2.3 mg/dL (2.5-4.9); THYROID STIMULATING HORMONE 18.52 uIU/mL (0.34-3.74)
[2020-10-21 12:00] VITALS: BP 104/55
--- NOTE | 2020-10-21 14:51 | NUR ---
RD RECOMMENDATIONS APPROVED BY DR. GRIFFITH.
--- NOTE | 2020-10-21 14:55 | NUR ---
10/21/20 RD INITIAL ASSESSMENT COMPLETED PLEASE REFER TO NUTRITION ASSESSMENT UNDER CARE ACTIVITY FOR ESTIMATED NUTRITIONAL NEEDS. 1.RECOMMEND GLUCERNA 1.2 @ 50ML/HR. THIS WILL PROVIDE 1440 KCAL AND 70 GM PROTEIN. 110ML WATER FLUSH Q6H. 2.RECOMMEND DAVID BID. 3.RD TO FOLLOW-UP 1-2 DAYS, HIGH RISK. JENNIFER NUNO, RD
--- NOTE | 2020-10-21 15:00 | NUR ---
GT feeding initiated: GT residual 0mL, stoma clear, tube patent and flushed with 50mL water. GT feeding initiated for Glucerna 1.2 @ 50ml/hr via enteral feeding pump, free water flush set at 110ml q6h. HOB kept elevated at 35. Pt resting in bed, abd soft, bowel sounds present on all quads.
[2020-10-21 16:00] VITALS: BP 104/59
--- NOTE | 2020-10-21 17:30 | NUR ---
Pt without urine output since admission. Bladder slightly distended. Bladder scan shows 560mL. Dr Oh notified; physician ordered to insert indwelling perez cath. Order noted and carried out.
--- NOTE | 2020-10-21 18:00 | NUR ---
Cuevas cath insertion: Using aseptic technique, inserted Cuevas cath 16Fr with closed circuit drain bag, and inflated balloon with 10mL sterile water. Cath secured to right leg with statlock. 600mL clear yellow urine output drained. Urine specimen collected and sent to lab. Patient tolerated procedure well, bladder soft and nondistended.
--- NOTE | 2020-10-21 19:10 | NUR ---
Report given to ginger Goel.
[2020-10-21] MEDS ORDERED: NUT TX GLUC INTOLER LAC FR SOY GT SCH (19:30)
[2020-10-21 20:00] VITALS: BP 104/55
--- NOTE | 2020-10-21 20:00 | NUR ---
RECEIVED PATIENT ASLEEP IN HER BED WITH REGULAR RISE AND FALL OF CHEST THE PATIENT BREATHS, NO GRIMACING OBSERVED
[2020-10-21 20:06] LABS: BARBITURATE, URINE NEGATIVE ng/ml (NEG <=200); BENZODIAZEPINE, URINE NEGATIVE ng/mL (NEG <=200); CANNABINOID, URINE NEGATIVE ng/mL (NEG <=50); COCAINE, URINE NEGATIVE ng/mL (NEG <=300); OPIATE, URINE NEGATIVE ng/mL (NEG <=2000); PHENCYCLIDINE SCREEN,URINE NEGATIVE ng/mL (NEG <=25)
[2020-10-21] MEDS: ASCORBIC ACID 500 MG/5 ML ORASYR GT SCH (20:56)
[2020-10-21] MEDS: MELATONIN 3 MG TAB PO SCH (20:56)
--- NOTE | 2020-10-21 21:00 | NUR ---
PATIENT'S DUE MEDS WERE GIVEN VIA G TUBE TOLERATED WELL BY THE PATIENT.
[2020-10-21 22:00] VITALS: BP 101/50
--- NOTE | 2020-10-21 22:30 | NUR ---
PATIENT WAS TURNED TO LEFT SIDE
--- NOTE | 2020-10-22 00:30 | NUR ---
PATIENT WAS ASLEEP CALMLY IN HER SCOTT TURNED SIDE TO SIDE.
[2020-10-22] MEDS: NACL 0.9% 1,000 ML IV SCH (00:49)
[2020-10-22 04:00] VITALS: BP 98/61
--- NOTE | 2020-10-22 04:00 | NUR ---
PATIENT HAD 1 BM, MODERATE SIZE BROWN, SOFT IN CONSISTENCY
--- NOTE | 2020-10-22 06:44 | NUR ---
ALL REPORTS WERE GIVEN, TRANSFER OF CARE ENDORSED.
[2020-10-22 06:50] LABS: BASOPHILS % (AUTO) 0.2 % (0.0-2.0); EOSINOPHILS # (AUTO) 0.1 K/uL (0-0.4); EOSINOPHILS % (AUTO) 0.6 % (0.0-4.0); HEMATOCRIT 28.4 % (36-48); HEMOGLOBIN 8.7 g/dL (12.0-16.0); LYMPHOCYTES # (AUTO) 1.4 K/uL (2.5-16.5); LYMPHOCYTES % (AUTO) 11.3 % (20.5-51.1); MEAN CORPUSCULAR HEMOGLOBIN 26 pg (27-31); MEAN CORPUSCULAR HGB CONC 31 g/dL (33-37); MEAN CORPUSCULAR VOLUME 84.2 fL (80-94); MONOCYTES # (AUTO) 0.5 K/uL (0.8-1.0); MONOCYTES % (AUTO) 4.3 % (1.7-9.3); NEUTROPHILS # (AUTO) 10.1 K/uL (1.8-7.7); NEUTROPHILS % (AUTO) 83.6 % (42.2-75.2); PLATELET COUNT (AUTO) 266 K/uL (140-450); RED BLOOD CELL COUNT(AUTO) 3.38 MIL/uL (4.20-5.40); WHITE BLOOD COUNT (AUTO) 12.1 K/uL (4.8-10.8)
[2020-10-22 06:55] LABS: ANION GAP 10.8 (8-16); CARBON DIOXIDE 25.2 mmol/L (21-32); CREATININE 0.4 mg/dL (0.6-1.3)
[2020-10-22 07:05] LABS: CHOL/HDL RATIO 6.2 (1-4.5); MAGNESIUM 2.5 mg/dL (1.8-2.4); PHOSPHORUS 1.4 mg/dL (2.5-4.9)
--- NOTE | 2020-10-22 07:30 | NUR ---
RECEIVED BEDSIDE REPORT FROM GEOINT ANALYST NURSE. PATIENT ASLEEP, SUPINE IN BED, OPENS EYES TO NAME AND LIGHT TOUCH, UNABLE TO MAKE NEEDS KNOWN, APHASIC. G TUBE FEEDING: GLUCERNA 1.2 @ 50 ML/HR. RH 20G INFUSING NS @ 1200ML/HR. BREATHING EVEN AND UNLABORED, NO SIGNS OF ACUTE DISTRESS NOTED ON RA. SACRAL AND BUTTOCKS SKIN CONDITIONS. SAFETY MEASURES IN PLACE.
[2020-10-22 08:00] VITALS: BP 109/53
[2020-10-22] MEDS ORDERED: DEXT 5% / NACL 0.45% 1,000 ML IV SCH (08:05)
[2020-10-22] MEDS: ASCORBIC ACID 500 MG/5 ML ORASYR GT SCH ×2 (08:40→21:54)
[2020-10-22] MEDS: traMADol 50 MG TAB GT SCH (08:42)
--- NOTE | 2020-10-22 08:42 | NUR ---
ADMINISTERED SCHEDULED MEDS PER MD ORDER. MED EDUCATION PROVIDED, REINFORCEMENT NEEDED. FLUIDS CHANGED PER ORDER. MULTIVITAMIN UNAVAILABLE, PHARMACY CONTACTED, PER PHARMACIST MEDICATION WILL BE STOCKED SOON, WILL FOLLOW UP. G TUBE RESIDUAL 5ML, FLUSHED BEFORE AND AFTER MEDS. SAFETY MEASURES IN PLACE, NO SIGNS OF ACUTE DISTRESS NOTED.
[2020-10-22] MEDS ORDERED: MULTIVITAMIN 5 ML ORASYR GT SCH (09:00)
--- NOTE | 2020-10-22 09:05 | NUR ---
DR BAUTISTA ROUNDING ON PATIENT AT BEDSIDE. PER DR BAUTISTA, FNS CONSULT FOR CA 7.6, PHOSPHORUS 1.4, MAGNESIUM 2.5.
[2020-10-22] MEDS: MULTIVITAMIN/MINERALS 15 ML UDBTL GT SCH (11:00)
--- NOTE | 2020-10-22 11:21 | NUR ---
JENNIFER WITH FNS CONSULT CALLED, PER JENNIFER REDUCE FEEDING TO 15ML/HR AND WILL BE REEVALUATED TOMORROW, VITAMIN B1 RECOMMENDED, NOTIFIED.
[2020-10-22 12:00] VITALS: BP 140/77
[2020-10-22] MEDS: THERAHONEY GEL 42.5 GM TP SCH (13:00)
[2020-10-22] MEDS: FOAM DRESSING TP SCH (13:00)
--- NOTE | 2020-10-22 14:59 | NUR ---
DC PLANN[age] YRS OLD FEMALE PATIENT [place] [facility] SEVER DEHYDRATION. PT HAS A HX OF COVID PNEUMONIA, ALZHEIMER,CVA, G-TUBE, DYSPHAGIA AND SEPSIS. CXR SHOWED NO ACUTE CARDIOPULMONARY DISEASE. THYROID US SHOWED HETEROGENOUS THYROID WITH TINY RIGHT NODULES . ADMINISTERED IVF, IV ABX ZOSYN AND CONTINUED HOME MEDS. CONSULTED WITH NEPHRO, ID,CARDIO AND PULMO. DC PLAN TO GO BACK [place] [facility] [place] CM TO FOLLOW. Addendum: 10/27/20 at 1242 by Char Denise RN DC PLANING: HOLD THE DISCHARGE FOR TODAY BECAUSE OF LOW H/H 7.3/22.1. CM TO FOLLOW Addendum: 10/27/20 at 1455 by Char Denise RN DC PLANNING: H/H 7.6/23/1 FAXED TO [facility] FOR TRANSPORT AUTH# CM TO FOLLOW Addendum: 10/27/20 at 1530 by Char Denise RN DC PLANNING: RECEIVED A CA [place] [facility] WITH AARON ALEX H/H IS TOO LOW TO ACCEPT PATIENT PER DR DR QUIROZ ACCEPTING NOTIFIED DR BUSBY. NEW ORDER CONSULT WITH YARI RAHMAN. CM TO FOLLOW Addendum: 10/28/20 at 1435 by Char Denise RN DC PLANNING: [place] [facility] [place] ROOM 48B # TO GIVE REPORT [phone] ARRANGED TRANSPORT WITH [facility] [employer] AUTH # [id number] ELECTRIC MOTOR AND GENERATOR ASSEMBLER TIME 3:30 PM NOTIFIED ESVIN MORRIS
--- NOTE | 2020-10-22 15:26 | NUR ---
RD RECOMMENDATIONS: PLEASE REFER TO NUTRITION ASSESSMENT UNDER CARE ACTIVITY FOR ESTIMATED NUTRITIONAL NEEDS. 1. RECOMMEND GLUCERNA 1.2 @ 15 ML/HR -THIS WILL PROVIDE 432 KCAL AND 21 GM OF PROTEIN/DAY. 2. ADVANCE BY 15 ML/HR EVERY 1-2 DAYS UNTIL GOAL OF 50 ML/HR IS MET. 3. RECOMMEND SUPPLEMENTATION OF THIAMIN FOR 5-7 DAYS 4. CONTINUE MULTIVITAMIN DAILY 5. FREE WATER FLUSH PER MD 6. RD TO FOLLOW-UP 2-3 DAYS, HIGH RISK JENNIFER NUNO RD
[2020-10-22 16:00] VITALS: BP 121/63
--- NOTE | 2020-10-22 16:05 | NUR ---
WOUND CARE EVALUATION NOTE: SKIN ASSESSMENT DONE WITH THIS PT. ADMITTED FROM [facility] WITH INITIAL DX OF ALTERED MENTAL STATUS, TACHYCARDIA FOR 1 DAY AND A LOW-GRADE FEVER.PT. ADMITTED WITH MULTIPLE PRESSURE INJURIES AND JOSIANE SCALE AT VERY HIGH RISK. PT. SKIN WARM AND DRY, FRAGILE, BLE SEVERE CONTRACTURE NO EDEMA, NO HAIRS, MULTIPLE THIN SCARS TO DORSAL FEET WITH SKIN INTACT. SMALL SOFT BM X1 DURING ASSESSMENT DISCUSSED WITH PRIMARY RN AND DR. FLETCHER INTEGUMENTARY: -GT SANCHEZ-STOMA SKIN DRY AND INTACT -PRESSURE INJURY LEFT TROCHANTER UN-STAGEABLE [id number], WOUND BED 90% YELLOW SLOUGH, WITH 10% GRANULATING TISSUE TO WOUND EDGE, WOUND EDGE ATTACHED, MILD ODOR, SMALL AMOUNT PURULENT DRAINAGE, SANCHEZ WOUND SKIN AND SURROUNDING TISSUE PALE IN COLOR FURTHER DAMAGE INDICATED, -PRESSURE INJURY RIGHT TROCHANTER STAGE DTI 2X4CM, IRREGULAR SHAPE WOUND BED 100% DARK PURPLE IN COLOR, MOIST, NO ODOR, SANCHEZ WOUND SKIN PALE DRY AND INTACT WITH SURROUNDING REDNESS INDICATED FURTHER DAMAGE. -SACRALCOCCYX DTI WOUND BED 3X4CM 100% DARK PURPLE IN COLOR, DRY, NO ODOR, SANCHEZ WOUND SKIN INTACT RECOMMENDATIONS -SURGEON CONSULT FOR LEFT TROCHANTERS DEBRIDEMENT -CLEANSE SACRALCOCCYX AND RIGHT TROCHANTERS WITH NS. PAT DRY, APPLY FOAM DRESSING QD AND PRN IF SOILING, OFFLOADING AT ALL TIMES -CLEANSE LEFT TROCHANTER WITH NS, PAT DRY, APPLY THERAHONEY GEL AND COVER WITH DRY DRESSING QD AND PRN IF SOILING. -APPLY SKIN PREP TO BILATERAL FOOT /TOES BID AND SHANE -APPLY HEEL PROTECTORS TO BILATERAL HEELS -TURN AND REPOSITION PATIENT Q 2H -ASSESS AND MONITOR SKIN CONDITION DURING POSITION CHANGE -OFFLOAD BILATERAL HEELS BY PLACING PILLOWS UNDER CALVES AT ALL TIMES, UNLESS OTHERWISE CONTRAINDICATED -PRESSURE REDISTRIBUTION SURFACE THERAPY -KEEP SKIN CLEAN AND DRY AT ALL TIMES. PLEASE CONTACT WOUND CARE NURSE FOR ANY QUESTION AND CHANGE OF WOUND CONDITION.
[2020-10-22] MEDS ORDERED: SODIUM PHOS / POTASSIUM PHOS 1 PKT PDR PO SCH ×2 (17:50→18:00)
[2020-10-22] MEDS: DEXTROSE 5% 1,000 ML IV SCH (17:56)
--- NOTE | 2020-10-22 18:03 | NUR ---
DR ROBERT ROUNDING ON PATIENT AT BEDSIDE.
--- NOTE | 2020-10-22 19:32 | NUR ---
ENDORSED TO NIGHTSHIFT NURSE FOR CONTINUITY OF CARE. PATIENT STABLE AT THIS TIME.
[2020-10-22 20:00] VITALS: BP 113/57
[2020-10-22] MEDS: MELATONIN 3 MG TAB PO SCH (21:55)
--- NOTE | 2020-10-22 23:25 | NUR ---
RECEIVED REPORT FROM PUBLICITY EXPERT NURSE FOR CONTINUITY OF CARE. PT ON ROOM AIR. UNABLE TO MAKE NEEDS KNOWN, CANNOT FOLLOW COMMANDS. PERRL, 3 MM BRISK, OPENS EYES SPONTANEOUSLY. GTUBE IN PLACE CONNECTED TO TUBE FEEDING GLUCERNA 1.2 @ 15ML/HR. NOEL CATHETER IN PLACE, HANGING BY GRAVITY. RIGHT FA 20G, FLUSHED AND PATENT, INFUSING D5 @ 100ML/HR. BED LOCKED AND IN LOWEST POSITION, SIDE RAILS UP, FLACC 0. BED ALARM ON, ALL VITALS STABLE, WILL CONTINUE TO MONITOR.
[2020-10-23] VITALS: BP 128/63
--- NOTE | 2020-10-23 01:10 | NUR ---
NO SIGNS OF DISTRESS, PT APPEARS CALM. VISIBLE CHEST RISE AND FALL. EYES CLOSED, OPENS EYES TO TOUCH. CONTINUE FREQUENT ROUNDS.
--- NOTE | 2020-10-23 03:10 | NUR ---
TURNED AND REPOSITIONED WITH ASSIST FROM SHROUDMAN. ASSESSED WOUNDS AT BILATERAL HIPS/SACRUM. DRESSINGS DRY AND INTACT. REINFORCED. OFFLOADED PRESSURE AREAS. HOB 30 DEGREES, BED LOCKED AND IN LOWEST POSITION. CALL LIGHT WITHIN REACH.
[2020-10-23 04:00] VITALS: BP 124/62
[2020-10-23] MEDS: DEXTROSE 5% 1,000 ML IV SCH ×3 (04:58→23:58)
--- NOTE | 2020-10-23 05:27 | NUR ---
SPONGE BATH AND NOEL CARE PROVIDED. DRESSINGS ARE DRY AND INTACT. PT HAD 1 SMALL BM. FLACC 0. EMPTIED NOEL, 450ML. IVF INFUSING ORDERED. SAFETY MEASURES IN PLACE. HOB 30 DEGREES
[2020-10-23] MEDS: LEVOTHYROXINE 0.025 MG TAB PO SCH (06:01)
[2020-10-23 07:00] LABS: ANION GAP 8.4 (8-16); CARBON DIOXIDE 25.2 mmol/L (21-32); CREATININE 0.4 mg/dL (0.6-1.3)
[2020-10-23 07:12] LABS: MAGNESIUM 2.1 mg/dL (1.8-2.4); PHOSPHORUS 1.7 mg/dL (2.5-4.9)
[2020-10-23 07:22] LABS: BASOPHILS % (AUTO) 0.4 % (0.0-2.0); EOSINOPHILS # (AUTO) 0.1 K/uL (0-0.4); HEMATOCRIT 24.5 % (36-48); HEMOGLOBIN 7.5 g/dL (12.0-16.0); LYMPHOCYTES # (AUTO) 1.4 K/uL (2.5-16.5); LYMPHOCYTES % (AUTO) 12.3 % (20.5-51.1); MEAN CORPUSCULAR HEMOGLOBIN 25 pg (27-31); MEAN CORPUSCULAR HGB CONC 31 g/dL (33-37); MEAN CORPUSCULAR VOLUME 82.8 fL (80-94); MONOCYTES # (AUTO) 0.4 K/uL (0.8-1.0); MONOCYTES % (AUTO) 3.4 % (1.7-9.3); NEUTROPHILS # (AUTO) 9.2 K/uL (1.8-7.7); NEUTROPHILS % (AUTO) 82.9 % (42.2-75.2); PLATELET COUNT (AUTO) 229 K/uL (140-450); RED BLOOD CELL COUNT(AUTO) 2.96 MIL/uL (4.20-5.40); RED CELL DISTRIBUTION WIDTH 16.5 % (11.6-13.7); WHITE BLOOD COUNT (AUTO) 11.1 K/uL (4.8-10.8)
[2020-10-23 07:27] LABS: POTASSIUM 2.6 mmol/L (3.5-5.1)
--- NOTE | 2020-10-23 07:43 | NUR ---
RECEIVED BEDSIDE REPORT FROM CARPENTER FOREMAN NURSE. PATIENT SLEEPING SUPINE IN BED, OPENS EYES TO NAME AND LIGHT TOUCH. BREATHING EVEN AND UNLABORED, ON RA, NO SIGNS OF ACUTE DISTRESS NOTED. RFA 20G INFUSING D5 @ 100 ML/HR. G TUBE FEEDING RUNNING GLUCERNA 1.2 @ 50 ML/HR. NOEL CATHETER IN PLACE, DRAINING TO GRAVITY. SAFETY MEASURES IN PLACE.
[2020-10-23 08:00] VITALS: BP 123/62
[2020-10-23] MEDS: SODIUM PHOS / POTASSIUM PHOS 1 PKT PDR PO SCH (08:51)
[2020-10-23] MEDS: traMADol 50 MG TAB GT SCH (08:51)
[2020-10-23] MEDS: ASCORBIC ACID 500 MG/5 ML ORASYR GT SCH ×2 (08:51→20:17)
[2020-10-23] MEDS: MULTIVITAMIN/MINERALS 15 ML UDBTL GT SCH (08:51)
[2020-10-23] MEDS: THERAHONEY GEL 42.5 GM TP SCH (08:55)
--- NOTE | 2020-10-23 09:09 | NUR ---
ADMINISTERED SCHEDULED MEDS PER MD ORDER. 40 MEQ ADMINISTERED FOR K 2.6. MED EDUCATION PROVIDED, REINFORCEMENT NEEDED.
[2020-10-23] MEDS ORDERED: POTASSIUM CHLORIDE 10 MEQ TABER PO SCH (10:30)
[2020-10-23] MEDS: CHLORHEXADINE GLUC 2% CLOTH TP SCH (11:48)
[2020-10-23] MEDS: MUPIROCIN CA NASAL 2% 1GM TUBE NS SCH (11:48)
--- NOTE | 2020-10-23 15:55 | NUR ---
LISTED CONTACTS CONTACTED IN AN ATTEMPT TO OBTAIN CONSENT FOR SCHEDULED PROCEDURE. VOICEMAIL WAS LEFT ONCE AGAIN ASKING FOR RETURN PHONE CALL. WILL FOLLOW UP.
[2020-10-23 16:00] VITALS: BP 115/63
--- NOTE | 2020-10-23 19:27 | NUR ---
ENDORSED TO HUMAN RESOURCE ASSISTANT NURSE FOR CONTINUITY OF CARE. PATIENT STABLE AT THIS TIME.
--- NOTE | 2020-10-23 19:28 | NUR ---
RECEIVED PATIENT FROM AM NURSE FOR CONTINUITY OF CARE. PATIENT IS AWAKE, EYE OPEN SPONTANEOUS, APHASIC. RESPIRATORY EVEN AND UNLABORED, ON ROOM AIR, NO SIGN OF RESPIRATORY DISTRESS NOTED. SKIN WARM, DRY, NON DIAPHORETIC. IV ON RIGHT FA 20G, INTACT AND PATENT, IS INFUSING FLUID ORDER. G-TUBE IN PLACE, TUBE FEEDING WITH GLUCERNA 1.2 @15ML/HR, WATER FLUSH 110ML Q6HR. NOEL IN PLACE, CLEAR YELLOW URINE. PLAN OF CARE DISCUSSED. PRECAUTION IN PLACE. CALL LIGHT WITHIN REACH. WILL CONTINUE TO MONITOR.
[2020-10-23] MEDS: MELATONIN 3 MG TAB PO SCH (20:17)
--- NOTE | 2020-10-23 20:17 | NUR ---
RESIDUAL LESS THAN 5CC. SCHEDULE MEDICATIONS GIVEN THROUGH G-TUBE. PER DR BAUTISTA, HOLD HEPARIN SUBQ. PATIENT TOLERATED WELL. PRECAUTION IN PLACE. CALL LIGHT WITHIN REACH. HOB ELEVATED. WILL CONTINUE TO MONITOR.
--- NOTE | 2020-10-23 22:00 | NUR ---
PATIENT IS AWAKE, EYE OPEN SPONTANEOUS. HELP HORIZONTAL BORING MILL OPERATOR TO REPOSITION PATIENT. PATIENT TOLERATED WELL. NO SIGN OF DISTRESS NOTED. PRECAUTION IN PLACE. HOB ELEVATED. CALL LIGHT WITHIN REACH. WILL CONTINUE TO MONITOR.
[2020-10-24] VITALS (7 sets, daily range): BP systolic 106–118; BP diastolic 45–84
--- NOTE | 2020-10-24 | NUR ---
STOP FEEDING TUBE, NPO STATUS FOR WOUND DEBRIDEMENT AM.
[2020-10-24] MEDS: ACETAMINOPHEN 325 MG TAB PO PRN (00:28)
--- NOTE | 2020-10-24 00:28 | NUR ---
PATIENT IS HAVING FEVER 100.6F, COOLING MEASURE APPLIED, TYLENOL PRN GIVEN THROUGH G-TUBE. PATIENT TOLERATED WELL. PRECAUTION IN PLACE. CALL LIGHT WITHIN REACH. WILL CONTINUE TO MONITOR.
--- NOTE | 2020-10-24 02:00 | NUR ---
PATIENT IS SLEEPING, CHEST RISE AND FALL NOTED. RECHECK TEMP 98.0 F NO SIGN OF DISTRESS NOTED. PRECAUTION IN PLACE. CALL LIGHT WITHIN REACH. WILL CONTINUE TO MONITOR.
--- NOTE | 2020-10-24 04:00 | NUR ---
ASSIST RETAIL TEAM LEADER TO CLEAN AND REPOSITION PATIENT. PATIENT TOLERATED WELL. NO SIGN OF DISTRESS NOTED. PRECAUTION IN PLACE. CALL LIGHT WITHIN REACH. HOB ELEVATED. WILL CONTINUE TO MONITOR.
[2020-10-24 04:18] LABS: BASOPHILS # (AUTO) 0.1 K/uL (0.00-0.22); BASOPHILS % (AUTO) 0.5 % (0.0-2.0); EOSINOPHILS # (AUTO) 0.1 K/uL (0-0.4); EOSINOPHILS % (AUTO) 0.7 % (0.0-4.0); HEMATOCRIT 25.3 % (36-48); HEMOGLOBIN 8.1 g/dL (12.0-16.0); LYMPHOCYTES # (AUTO) 1.5 K/uL (2.5-16.5); LYMPHOCYTES % (AUTO) 14.7 % (20.5-51.1); MEAN CORPUSCULAR HEMOGLOBIN 26 pg (27-31); MEAN CORPUSCULAR HGB CONC 32 g/dL (33-37); MEAN CORPUSCULAR VOLUME 81.8 fL (80-94); MONOCYTES # (AUTO) 0.4 K/uL (0.8-1.0); MONOCYTES % (AUTO) 4.3 % (1.7-9.3); NEUTROPHILS # (AUTO) 8.3 K/uL (1.8-7.7); NEUTROPHILS % (AUTO) 79.8 % (42.2-75.2); PLATELET COUNT (AUTO) 291 K/uL (140-450); RED CELL DISTRIBUTION WIDTH 16.4 % (11.6-13.7); WHITE BLOOD COUNT (AUTO) 10.4 K/uL (4.8-10.8)
[2020-10-24 04:30] LABS: ANION GAP 6.9 (8-16); CARBON DIOXIDE 28.7 mmol/L (21-32); CREATININE 0.4 mg/dL (0.6-1.3); POTASSIUM 3.6 mmol/L (3.5-5.1)
[2020-10-24 06:28] LABS: MAGNESIUM 2.1 mg/dL (1.8-2.4); PHOSPHORUS 2.6 mg/dL (2.5-4.9)
[2020-10-24] MEDS: LEVOTHYROXINE 0.025 MG TAB PO SCH (06:40)
--- NOTE | 2020-10-24 06:50 | NUR ---
DR ARCHULETA AT BEDSIDE. ORDER NORMAL SALINE 0.9% @100ML/HR. CALCIUM GLUCONATE 1000MG IN NS 0.9% X ONCE.
--- NOTE | 2020-10-24 07:05 | NUR ---
RECEIVED CALL FROM PHARMACY, STATE WILL PREPARE CALCIUM GLUCONATE AND DELIVER TO UNIT.
[2020-10-24] MEDS: NACL 0.9% 1,000 ML IV SCH ×2 (07:07→17:07)
[2020-10-24] MEDS ORDERED: CALCIUM GLUCONATE 10% 1,000 MG in NACL 0.9% 50 ML IV SCH (07:10)
--- NOTE | 2020-10-24 07:15 | NUR ---
ENDORSED PATIENT TO AM NURSE FOR CONTINUITY OF CARE. PATIENT IS STABLE.
--- NOTE | 2020-10-24 07:16 | NUR ---
RECEIVED REPORT FROM MULTIPLE LAUNCH ROCKET SYSTEM CREWMEMBER NURSE. PATIENT LYING DOWN IN BED SLEEPING, AROUSABLE BY VOICE. NO DISTRESS NOTED. ON ROOM AIR. IV SITE INTACT, PATENT, AND INFUSING IVF PER MD ORDERS. NOEL CATH IN PLACE. SAFETY MEASURES IN PLACE, CALL LIGHT WITHIN REACH. WILL CONTINUE TO MONITOR.
[2020-10-24] MEDS ORDERED: fentaNYL citrate 0.05 MG/ML VIAL ONE (07:22)
[2020-10-24] MEDS ORDERED: LIDOCAINE MPF 1% 0 ML ONE (07:35)
[2020-10-24] MEDS ORDERED: HYDROGEN PEROXIDE 3% 240 ML BTL TP ONE (07:35)
[2020-10-24] MEDS ORDERED: BUPIVACAINE-MPF/EPI 0.25% 30 ML VIAL INJ ONE (07:35)
[2020-10-24] MEDS ORDERED: LIDOCAINE 1% 500 MG/50 ML VIAL ONE (07:36)
[2020-10-24] MEDS: traMADol 50 MG TAB GT SCH (09:00)
[2020-10-24] MEDS: ASCORBIC ACID 500 MG/5 ML ORASYR GT SCH ×2 (09:00→20:19)
[2020-10-24] MEDS: SODIUM PHOS / POTASSIUM PHOS 1 PKT PDR PO SCH (09:00)
[2020-10-24] MEDS: MULTIVITAMIN/MINERALS 15 ML UDBTL GT SCH (09:00)
[2020-10-24] MEDS: THERAHONEY GEL 42.5 GM TP SCH (09:00)
[2020-10-24] MEDS: DEXTROSE 5% 1,000 ML IV SCH ×2 (09:30→19:30)
--- NOTE | 2020-10-24 09:30 | NUR ---
SCHEDULED MEDICATIONS DUE NOT GIVEN PATIENT IS NPO AND POSSIBLE DEBRIDEMENT LATER TODAY. WILL CONTINUE TO MONITOR.
--- NOTE | 2020-10-24 10:44 | NUR ---
PATIENT LYING DOWN IN BED SLEEPING, AROUSABLE BY VOICE. CONDITION UNCHANGED. WILL CONTINUE TO MONITOR.
--- NOTE | 2020-10-24 11:30 | NUR ---
CALLED PATIENT'S DAUGHTER AGAIN, KYAW PORTILLO [phone]. DAUGHTER PICKED UP PHONE AND MALAY SPEAKER. TRANSLATER NEEDED. NOTIFIED HER OF DR. VIVAS WANTING TO PERFORM DEBRIDEMENT PROCEDURE FOR SACRAL AND LEFT HIP WOUND. EXPLAINED THAT PATIENT WILL BE UNDER ANESTHESIA WELL. PER KYAW, IT IS OK FOR PATIENT TO RECEIVE THE DEBRIDEMENT AND ANESTHESIA. NOTIFIED DR. VIVAS THAT PATIENT'S DAUGHTER GAVE PRELIMINARY "YES" CONSENT TO DEBRIDEMENT AND ANESTHESIA. PER DR. VIVAS. HE WILL CALL PATIENT TOMORROW ALONG WITH ANESTHESIOLOGIST AROUND 0830 TO OBTAIN CONSENT WITH CORRESPONDENCE TRANSCRIBER.
[2020-10-24] MEDS: MUPIROCIN CA NASAL 2% 1GM TUBE NS SCH (11:58)
[2020-10-24] MEDS: CHLORHEXADINE GLUC 2% CLOTH TP SCH (11:58)
--- NOTE | 2020-10-24 11:58 | NUR ---
SCHEDULED MEDICATIONS DUE GIVEN. WILL CONTINUE TO MONITOR.
--- NOTE | 2020-10-24 12:03 | NUR ---
10/24/20 RD FOLLOW UP COMPLETED PLEASE REFER TO NUTRITION ASSESSMENT UNDER CARE ACTIVITY FOR ESTIMATED NUTRITIONAL NEEDS. 1. CURRENTLY NPO AFTER MIDNIGHT 2. WHEN MEDICALLY CLEARED CONTINUE GLUCERNA 1.2 @ 50 ML/HR. START AT 20 ML/HR AND INCREASE BY 20 ML/HR Q4H UNTIL GOAL IS REACHED -THIS WILL PROVIDE 1440 KCAL AND 72 GM OF PROTEIN PER DAY. 3. CONTINUED FREE WATER FLUSH OF 110 ML Q6H 4. CONTINUE MULTIVITAMIN DAILY AND VITAMIN C BID 5. RD TO FOLLOW-UP 2-3 DAYS, HIGH RISK JENNIFER NUNO RD
--- NOTE | 2020-10-24 15:00 | NUR ---
PATIENT LYING DOWN IN BED SLEEPING, AROUSABLE BY VOICE. NO DISTRESS NOTED. CONDITION UNCHANGED. WILL CONTINUE TO MONITOR.
--- NOTE | 2020-10-24 19:29 | NUR ---
GAVE REPORT TO INSPECTOR TESTER SORTER NURSE FOR CONTINUITY OF CARE. PATIENT IN STABLE CONDITION.
--- NOTE | 2020-10-24 20:00 | NUR ---
RECEIVED PATIENT AWAKE IN BED. PT AWAKE BUT APHASIC. BLE CONTRACTURES NOTED. PEG IN PLACE WITH TUBE FEEDING RUNNING. NO RESIDUALS NOTED. NOEL CATH IN PLACE DRAINING CLEAR, YELLOW URINE. BED LOWERED WITH CALL LIGHT WITHIN REACH
[2020-10-24] MEDS: MELATONIN 3 MG TAB PO SCH (20:19)
[2020-10-25] MEDS: NACL 0.9% 1,000 ML IV SCH (02:50)
[2020-10-25] MEDS: DEXTROSE 5% 1,000 ML IV SCH ×2 (04:02→15:23)
[2020-10-25 04:06] VITALS: BP 112/60
[2020-10-25] MEDS: ACETAMINOPHEN 325 MG TAB PO PRN (04:09)
--- NOTE | 2020-10-25 04:12 | NUR ---
PT FEBRILE WITH TEMP OF 101.5. PRN MED ADMINISTERED. COOLING MEASURES PUT IN PLACE
--- NOTE | 2020-10-25 05:15 | NUR ---
TEMP RECHECKED 99.9
[2020-10-25] MEDS: LEVOTHYROXINE 0.025 MG TAB PO SCH (06:50)
[2020-10-25 06:57] LABS: BASOPHILS % (AUTO) 0.1 % (0.0-2.0); EOSINOPHILS % (AUTO) 0.6 % (0.0-4.0); HEMATOCRIT 23.5 % (36-48); HEMOGLOBIN 7.5 g/dL (12.0-16.0); LYMPHOCYTES % (AUTO) 11.4 % (20.5-51.1); MEAN CORPUSCULAR HEMOGLOBIN 26 pg (27-31); MEAN CORPUSCULAR HGB CONC 32 g/dL (33-37); MEAN CORPUSCULAR VOLUME 81.1 fL (80-94); MONOCYTES # (AUTO) 0.5 K/uL (0.8-1.0); MONOCYTES % (AUTO) 5.5 % (1.7-9.3); NEUTROPHILS # (AUTO) 7.1 K/uL (1.8-7.7); NEUTROPHILS % (AUTO) 82.4 % (42.2-75.2); PLATELET COUNT (AUTO) 268 K/uL (140-450); RED BLOOD CELL COUNT(AUTO) 2.89 MIL/uL (4.20-5.40); RED CELL DISTRIBUTION WIDTH 16.2 % (11.6-13.7); WHITE BLOOD COUNT (AUTO) 8.6 K/uL (4.8-10.8)
[2020-10-25 07:01] LABS: ANION GAP 7.6 (8-16); CARBON DIOXIDE 26.2 mmol/L (21-32); CREATININE 0.4 mg/dL (0.6-1.3)
[2020-10-25 07:03] LABS: MAGNESIUM 1.9 mg/dL (1.8-2.4); PHOSPHORUS 2.7 mg/dL (2.5-4.9); POTASSIUM 2.8 mmol/L (3.5-5.1)
--- NOTE | 2020-10-25 07:05 | NUR ---
RECEIVED REPORT FROM SKEWER UP NURSE FOR CONTINUITY OF CARE. PT IS SLEEPING ON RA WITH BREATHING UNLABORED, WITH VISIBLE CHEST RISE AND FALLING, SYMMETRICAL. PT IS BEDBOUND. CONTRACTURES APPARENT ON UPPER AND LOWER EXTREMITIES. SKIN IS DRY AND WARM. WOUND ON R/L HIP AND SACRAL REGION. DRESSING DRY AND INTACT. IV IN PLACE ON R FA 20 GAUGE RUNNING D5 AT 100 ML/HR. G-TUBE IN PLACE WITH TUBE FEEDING ON HOLD FOR NPO STATUS. CONTACT PRECAUTION IN PLACE FOR MRSA NARES POSITIVE. PT IS STABLE. CALL LIGHT WITH IN REACH. ALL SAFETY MEASURE IN PLACE. WILL CONTINUE TO MONITOR.
[2020-10-25] MEDS ORDERED: KCL 20 MEQ/WATER INJ PREMIX 200 ML IV ONE (07:10)
--- NOTE | 2020-10-25 07:10 | NUR ---
GAVE PT K RIDER 40 MEQS ORDER IV FROM DR. BUSBY. K LEVEL 2.8.
--- NOTE | 2020-10-25 07:31 | NUR ---
PT REPORT GIVEN AT BEDSIDE. PATIENT ENDORSED IN STABLE CONDITION
--- NOTE | 2020-10-25 07:35 | NUR ---
SPOKE TO RUG TOUCH UP PAINTER AND HE INFORMED ME THAT THE PROCEDURE FOR DEBRIDEMENT IS SCHEDULED AT 10 AM. HE ASKED FOR ME TO CALL THE DAUGHTER, KYAW, AND ASK HER TO BE PRESENT AT 9:40 AM TO DISCUSS THE PROCEDURE WITH THE SURGEON DR. VIVAS. CALLED KYAW AND INFORMED HER OF THE PROCEDURE TIME AND TO ARRIVE AT 9:40 AM. KYAW AGREED AND VERBALIZED UNDERSTANDING. PHONE NUMBER [phone].
[2020-10-25 08:00] VITALS: BP 115/58
[2020-10-25] MEDS: traMADol 50 MG TAB GT SCH (08:40)
[2020-10-25] MEDS: MULTIVITAMIN/MINERALS 15 ML UDBTL GT SCH (08:40)
[2020-10-25] MEDS: ASCORBIC ACID 500 MG/5 ML ORASYR GT SCH ×2 (08:41→21:11)
[2020-10-25] MEDS: SODIUM PHOS / POTASSIUM PHOS 1 PKT PDR PO SCH (08:41)
[2020-10-25] MEDS: THERAHONEY GEL 42.5 GM TP SCH (08:42)
[2020-10-25] MEDS: FOAM DRESSING TP SCH (08:42)
[2020-10-25] MEDS ORDERED: BUPIVACAINE-MPF/EPI 0.25% 30 ML VIAL INJ ONE (08:51)
[2020-10-25] MEDS ORDERED: LIDOCAINE 1% 500 MG/50 ML VIAL ONE ×2 (08:52→10:06)
[2020-10-25] MEDS ORDERED: HYDROGEN PEROXIDE 3% 240 ML BTL TP ONE (08:52)
--- NOTE | 2020-10-25 09:07 | NUR ---
CHECKED FINGERSTICK BLOOD GLUCOSE REQUESTED BY OR NURSE DAYNE. BS READING WAS 90. CALLED OR TWICE AND NO ANSWER. WILL TRY AGAIN LATER.
[2020-10-25] MEDS ORDERED: POTASSIUM CHL 40 MEQ/ D5-1/2NS 1,000 ML IV SCH (09:25)
[2020-10-25] MEDS ORDERED: ceFAZolin 1,000 MG VIAL ONE (09:31)
--- NOTE | 2020-10-25 09:40 | NUR ---
DAUGHTER, KYAW, AT BEDSIDE AWAITING FOR DOCTOR TO ARRIVE TO DISCUSS PROCEDURE.
[2020-10-25] MEDS ORDERED: PROPOFOL 200 MG/20 ML VIAL IV ONE (10:00)
[2020-10-25] MEDS ORDERED: CALCIUM GLUCONATE 10% 1,000 MG in NACL 0.9% 50 ML IV ONE (10:00)
--- NOTE | 2020-10-25 10:00 | NUR ---
RECEIVED VERBAL ORDER FROM DR. ARCHULETA TO ORDER CALCIUM GLUCONATE 1,000 MG IV.
[2020-10-25] MEDS ORDERED: FUROSEMIDE 40 MG/4 ML VIAL IVP ONE (10:06)
--- NOTE | 2020-10-25 10:25 | NUR ---
DR. ARCHULETA, ANESTHESIOLOGIST, AT BEDSIDE EXPLAINING ANESTHESIA PROCESS TO PT'S DAUGHTER KYAW. DR. VIVAS EXPLAINED PROCEDURE TO KYAW WELL. MEDICAL STUDENT, TWO SYNTHETIC PLASTERER'S, AND TWO NURSING STUDENTS ALSO AT BEDSIDE WITNESSING CONSENT. DAUGHTER, KYAW, VERBALIZED UNDERSTANDING AND CONSENTED TO PROCEDURE AFTER BEING EXPLAINED RISKS AND BENEFITS. PT IS NOW BEING TAKEN TO THE OR FOR DEBRIDEMENT PROCEDURE.
[2020-10-25] MEDS ORDERED: LIDOCAINE/EPI 1% 1:100000 20 ML VIAL INJ ONE (10:52)
[2020-10-25] MEDS ORDERED: LIDOCAINE/EPI MPF 1%1:200000 30 ML VIAL INJ ONE (10:52)
[2020-10-25] MEDS ORDERED: fentaNYL citrate 0.05 MG/ML VIAL ONE (11:35)
--- NOTE | 2020-10-25 12:20 | NUR ---
PT ARRIVED BACK FROM THE OR. DEBRIDEMENT WAS COMPLETED ON THE LEFT AND RIGHT BUTTOCK. WOULDS WERE COVERED WITH ADITI, 4X4 GAUZE, AND ABD PAD. DRESSINGS ARE DRY AND INTACT. PT APPEARS TO BE STABLE. NO RESPIRATORY DISTRESS NOTED. BREATHING UNLABORED ON 4L O2 NC, O2 SAT IS 98%. VS ARE STABLE. NOEL IN PLACE DRAINING CLEAR, YELLOW URINE. NEW IV IN PLACE ON THE RIGHT HAND 22 GAUGE. PREVIOUS IV ON THE RIGHT FOREARM WAS REMOVED. PT IS STABLE.
[2020-10-25] MEDS: CHLORHEXADINE GLUC 2% CLOTH TP SCH (13:17)
[2020-10-25] MEDS: MUPIROCIN CA NASAL 2% 1GM TUBE NS SCH (13:17)
--- NOTE | 2020-10-25 14:07 | NUR ---
PT IS STABLE. BREATHING IS UNLABORED. ON 4L O2 NC, O2 SAT IS 99%. BLANKET WAS PROVIDED FOR COMFORT. TUBE FEEDING WAS STARTED PER ORDER. WILL CONTINUE TO MONITOR.
--- NOTE | 2020-10-25 15:04 | NUR ---
INFORMED DR. BUSBY THAT PT DOES NOT HAVE A DIET ORDER IN FOR TUBE FEEDING AND PT IS BACK FROM DEBRIDEMENT OF WOUNDS. ALSO INFORMED HIM THAT NUTRITION RECOMMENDED GLUCERNA 1.2 AT 50 ML/HR WITH WATER FLUSHES 110 ML Q6H. DOCTOR SAID TO START FEEDING RECOMMENDED.
[2020-10-25 16:00] VITALS: BP 116/67
--- NOTE | 2020-10-25 16:20 | NUR ---
RECHECKED PT'S TEMP AND IT WAS 98.5 F AT THE LEFT AXILLA. NO FEVER NOTED. PT IS STABLE.
--- NOTE | 2020-10-25 17:00 | NUR ---
PT IS ASLEEP ON RA WITH O2 SAT 100%. HEART RATE AT 98. IV FLUID RUNNING AND IV PATENT. G TUBE FEEDING INFUSING. PT STABLE. WILL CONTINUE TO MONITOR.
--- NOTE | 2020-10-25 19:05 | NUR ---
ENDORSED PT TO DAY SHIFT NURSE FOR CONTINUITY OF CARE. PT IS STABLE AT THIS TIME. PLAN OF CARE DISCUSSED. Addendum: 10/25/20 at 1934 by Lindsey Haskins RN TICKET AGENT NURSE
--- NOTE | 2020-10-25 19:20 | NUR ---
RECEIVED REPORT FROM AM RN. PATIENT IN BED AWAKE, NO SOB NOTED. IVF OF D5 AT 100 ML/HR INFUSING WELL ON THE RIGHT HAND. G-TUBE FEEDING OF GLUCERNA. CALL LIGHT WITHIN REACH. WILL CONTINUE TO MONITOR.
[2020-10-25] MEDS: MELATONIN 3 MG TAB PO SCH (21:11)
--- NOTE | 2020-10-25 21:13 | NUR ---
PER DR BUSBY; HOLD HEPARIN SUBQ TONIGHT AND RESUME IN AM.CHARGE NURSE AWARE
[2020-10-26] VITALS: BP 100/57
[2020-10-26] MEDS: DEXTROSE 5% 1,000 ML IV SCH ×4 (01:30→21:30)
--- NOTE | 2020-10-26 03:40 | NUR ---
PATIENT IS SLEEPING. NO S/S OF RESPIRATORY DISTRESS. SAFETY PRECAUTION IN PLACE. CALL LIGHT WITHIN REACH.
[2020-10-26] MEDS ORDERED: CRUSHER, PILL MC ONE (05:44)
[2020-10-26] MEDS: LEVOTHYROXINE 0.025 MG TAB PO SCH (05:58)
[2020-10-26 06:45] LABS: BASOPHILS % (AUTO) 0.1 % (0.0-2.0); EOSINOPHILS # (AUTO) 0.1 K/uL (0-0.4); EOSINOPHILS % (AUTO) 0.7 % (0.0-4.0); HEMATOCRIT 22.9 % (36-48); HEMOGLOBIN 7.3 g/dL (12.0-16.0); LYMPHOCYTES # (AUTO) 1.2 K/uL (2.5-16.5); LYMPHOCYTES % (AUTO) 15.2 % (20.5-51.1); MEAN CORPUSCULAR HEMOGLOBIN 26 pg (27-31); MEAN CORPUSCULAR HGB CONC 32 g/dL (33-37); MEAN CORPUSCULAR VOLUME 81.8 fL (80-94); MONOCYTES # (AUTO) 0.4 K/uL (0.8-1.0); NEUTROPHILS # (AUTO) 6.4 K/uL (1.8-7.7); PLATELET COUNT (AUTO) 316 K/uL (140-450); RED BLOOD CELL COUNT(AUTO) 2.79 MIL/uL (4.20-5.40); RED CELL DISTRIBUTION WIDTH 16.1 % (11.6-13.7); WHITE BLOOD COUNT (AUTO) 8.1 K/uL (4.8-10.8)
[2020-10-26 07:01] LABS: ANION GAP 9.3 (8-16); CARBON DIOXIDE 26.3 mmol/L (21-32); CREATININE 0.4 mg/dL (0.6-1.3); POTASSIUM 3.6 mmol/L (3.5-5.1)
[2020-10-26 07:06] LABS: PHOSPHORUS 2.6 mg/dL (2.5-4.9)
--- NOTE | 2020-10-26 07:15 | NUR ---
ENDORSED TO AM NURSE FOR CONTINUITY OF CARE. PATIENT IS STABLE.
--- NOTE | 2020-10-26 07:15 | NUR ---
RECEIVE REPORT FROM WING COMMANDER NURSE FOR CONTINUITY OF CARE. PATIENT SLEEPING IN BED. BREATHING IS EVEN AND UNLABORED. ALL SAFETY MEASURES IN PLACE. WILL CONTINUE TO MONITOR.
[2020-10-26 08:00] VITALS: BP 111/62
[2020-10-26] MEDS: THERAHONEY GEL 42.5 GM TP SCH (09:00)
[2020-10-26] MEDS ORDERED: POTA10TE30 PO (09:35)
[2020-10-26] MEDS ORDERED: FERR325E14 PO (09:35)
[2020-10-26] MEDS: ASCORBIC ACID 500 MG/5 ML ORASYR GT SCH ×2 (09:50→21:36)
[2020-10-26] MEDS: MULTIVITAMIN/MINERALS 15 ML UDBTL GT SCH (09:50)
[2020-10-26] MEDS: traMADol 50 MG TAB GT SCH (09:50)
[2020-10-26] MEDS: SODIUM PHOS / POTASSIUM PHOS 1 PKT PDR PO SCH (09:50)
--- NOTE | 2020-10-26 09:50 | NUR ---
PATIENT IN BED. ROUTINE MEDICATION GIVEN VIA G-TUBE. NO RESIDUAL NOTED. ALL SAFETY MEASURES IN PLACE. WILL CONTINUE TO MONITOR.
[2020-10-26] MEDS: MUPIROCIN CA NASAL 2% 1GM TUBE NS SCH (11:00)
[2020-10-26] MEDS: CHLORHEXADINE GLUC 2% CLOTH TP SCH (11:00)
--- NOTE | 2020-10-26 11:51 | NUR ---
FRANCISCO PACK [place] [facility] [place] STATING THAT THEY WILL NOT TAKE PATIENT BACK UNLESS LAB VALUES LOOK BETTER. DR. BUSBY NOTIFIED THAT PATIENT IS STABLE TO BE DISCHARGED.
--- NOTE | 2020-10-26 14:15 | NUR ---
PATIENT SLEEPING IN BED. BREATHING IS EVEN AND UNLABORED. ALL SAFETY MEASURES IN PLACE. WILL CONTINUE TO MONITOR.
[2020-10-26 16:00] VITALS: BP 107/48
--- NOTE | 2020-10-26 16:39 | NUR ---
PATIENT SLEEPING IN BED. NO ACUTE DISTRESS NOTED. ALL SAFETY MEASURES IN PLACE. WILL CONTINUE TO MONITOR.
--- NOTE | 2020-10-26 18:41 | NUR ---
PATIENT SLEEPING. NO ACUTE DISTRESS NOTED. CRABBING MACHINE OPERATOR AT BEDSIDE CLEANING PATIENT. ALL SAFETY MEASURES IN PLACE. WILL CONTINUE TO MONITOR.
--- NOTE | 2020-10-26 19:20 | NUR ---
REPORT GIVEN TO NIGHT NURSE FOR CONTINUITY OF CARE. PATIENT STABLE. ALL SAFETY MEASURES IN PLACE.
--- NOTE | 2020-10-26 19:26 | NUR ---
RECEIVED REPORT FROM AM RN. PATIENT IS SLEEPING NO S/S OF RESPIRATORY DISTRESS. G-TUBE FEEDING RUNNING AT 40 ML, IVF OF D5 AT 100 ML. NOEL CATHETER DRAINING YELLOW URINE. BED IN LOW POSITION. SAFETY MEASURES IN PLACE. WILL CONTINUE TO MONITOR.
[2020-10-26] MEDS: MELATONIN 3 MG TAB PO SCH (21:36)
--- NOTE | 2020-10-26 21:36 | NUR ---
ADMINISTERED MEDICATIONS SCHEDULED PER MD ORDERED.
[2020-10-27] VITALS: BP 121/48
--- NOTE | 2020-10-27 04:22 | NUR ---
PATIENT IS SLEEPING . RESPIRATION EVEN UNLABORED. SAFETY PRECAUTIONS IN PLACE.
[2020-10-27] MEDS: LEVOTHYROXINE 0.025 MG TAB PO SCH (06:16)
[2020-10-27 08:00] VITALS: BP 132/63
[2020-10-27] MEDS: MULTIVITAMIN/MINERALS 15 ML UDBTL GT SCH (09:45)
[2020-10-27] MEDS: ASCORBIC ACID 500 MG/5 ML ORASYR GT SCH ×2 (09:45→20:41)
[2020-10-27] MEDS: traMADol 50 MG TAB GT SCH (09:46)
[2020-10-27] MEDS: SODIUM PHOS / POTASSIUM PHOS 1 PKT PDR PO SCH (09:47)
[2020-10-27] MEDS: THERAHONEY GEL 42.5 GM TP SCH ×2 (09:56→12:54)
--- NOTE | 2020-10-27 09:59 | NUR ---
MEDICATIONS GIVEN ORDERED.
--- NOTE | 2020-10-27 11:02 | NUR ---
WOUND CARE RE-EVALUATION NOTE: S/P DEBRIDEMENT: SKIN ASSESSMENT DONE PT. WITH INCONTINENCE OF BOWEL X2. POC DISCUSSED WITH PRIMARY RN. INTEGUMENTARY: -GT SANCHEZ-STOMA SKIN DRY AND INTACT -PRESSURE INJURY LEFT TROCHANTER S/P DEBRIDEMENT STAGE 4, MUSCLE OBSERVED. [id number], MIXTURE OF THIN LIGHT YELLOW SLOUGH AND GRANULATING TISSUE TO WOUND BED, UNDERMINING AROUND THE CLOCK WITH DEEPEST TO 9 O'CLOCK DIRECTION 1.5CM, NO ODOR, MODERATE SEROSANGUINEOUS DRAINAGE, SANCHEZ WOUND SKIN INTACT AND SURROUNDING TISSUE PINK IN COLOR -PRESSURE INJURY RIGHT TROCHANTER STAGE S/P DEBRIDEMENT UN-STAGEABLE ROUND SHAPE WOUND BED [id number] 100% SOFT YELLOW SLOUGH TISSUE, DRY, NO ODOR, SANCHEZ WOUND SKIN PINK AND INTACT -SACRALCOCCYX DTI WOUND BED 3X4CM 100% DARK PURPLE IN COLOR, DRY, NO ODOR, SANCHEZ WOUND SKIN INTACT RECOMMENDATIONS -CLEANSE SACRALCOCCYX WITH NS. PAT DRY, APPLY FOAM DRESSING QD AND PRN IF SOILING, OFFLOADING AT ALL TIMES -CLEANSE LEFT AND RIGHT TROCHANTER WITH NS, PAT DRY, APPLY THERAHONEY GEL AND COVER WITH DRY DRESSING QD AND PRN IF SOILING. -APPLY SKIN PREP TO BILATERAL FOOT /TOES BID AND SHANE -APPLY HEEL PROTECTORS TO BILATERAL HEELS -TURN AND REPOSITION PATIENT Q 2H -ASSESS AND MONITOR SKIN CONDITION DURING POSITION CHANGE -OFFLOAD BILATERAL HEELS BY PLACING PILLOWS UNDER CALVES AT ALL TIMES, UNLESS OTHERWISE CONTRAINDICATED -PRESSURE REDISTRIBUTION SURFACE THERAPY -KEEP SKIN CLEAN AND DRY AT ALL TIMES.
--- NOTE | 2020-10-27 11:20 | NUR ---
ENDORSED PT TO ALEXANDRA FAUST FOR CONTINUITY OF CARE
--- NOTE | 2020-10-27 11:20 | NUR ---
RECEIVED BEDSIDE REPORT FROM QUILLER OPERATOR NURSE FOR CONTINUITY OF CARE. PT IS APHASIC, IN SUPINE POSITION. ON RA WITH BREATHING UNLABORED. PT HAS A G TUBE IN PLACE RUNNING GLUCERNA AT 40 ML PER HOUR PER ORDER. NOEL CATH IN PLACE. SKIN IS WARM AND DRY. WOUNDS ON THE LEFT AND RIGHT BUTTOCK. ALSO WOUND ON THE SACRAL WITH DRESSINGS INTACT. IV IS IN THE RIGHT HAND 22 GAUGE RUNNING D5 AT 100 ML PER HOUR PER ORDER. PT IS STABLE. CONTACT PRECAUTIONS FOR MRSA NARES POSITIVE.
[2020-10-27] MEDS ORDERED: MUPIROCIN CA NASAL 2% 1GM TUBE NS ONE (12:49)
[2020-10-27] MEDS: CHLORHEXADINE GLUC 2% CLOTH TP SCH (12:53)
[2020-10-27] MEDS: MUPIROCIN CA NASAL 2% 1GM TUBE NS SCH (12:53)
--- NOTE | 2020-10-27 13:30 | NUR ---
G TUBE RESIDUAL IS LESS THAN 5 ML. PT TOLERATING FEEDING WELL. NO RESPIRATORY DISTRESS NOTED ON RA. DRESSINGS DRY AND INTACT ON THE LEFT AND RIGHT BUTTOCK AND SACRAL REGION. FLACC 0. PT AROUSES TO SHAKING. A&OX0. PT IS NONVERBAL. WILL CONTINUE TO MONITOR.
[2020-10-27 13:43] LABS: BASOPHILS % (AUTO) 0.1 % (0.0-2.0); EOSINOPHILS % (AUTO) 0.4 % (0.0-4.0); HEMATOCRIT 23.7 % (36-48); HEMOGLOBIN 7.6 g/dL (12.0-16.0); LYMPHOCYTES % (AUTO) 11.5 % (20.5-51.1); MEAN CORPUSCULAR HEMOGLOBIN 26 pg (27-31); MEAN CORPUSCULAR HGB CONC 32 g/dL (33-37); MEAN CORPUSCULAR VOLUME 81.8 fL (80-94); MONOCYTES # (AUTO) 0.5 K/uL (0.8-1.0); MONOCYTES % (AUTO) 6.4 % (1.7-9.3); NEUTROPHILS # (AUTO) 6.8 K/uL (1.8-7.7); NEUTROPHILS % (AUTO) 81.6 % (42.2-75.2); PLATELET COUNT (AUTO) 389 K/uL (140-450); RED CELL DISTRIBUTION WIDTH 16.9 % (11.6-13.7); WHITE BLOOD COUNT (AUTO) 8.3 K/uL (4.8-10.8)
[2020-10-27 14:03] LABS: ANION GAP 10.5 (8-16); CARBON DIOXIDE 28.5 mmol/L (21-32); CREATININE 0.4 mg/dL (0.6-1.3)
[2020-10-27 14:07] LABS: MAGNESIUM 2.1 mg/dL (1.8-2.4); PHOSPHORUS 3.4 mg/dL (2.5-4.9)
--- NOTE | 2020-10-27 15:30 | NUR ---
ROUNDED ON PT. SHE IS SLEEPING IN SEMI FOWLERS POSITION. NO DISTRESS NOTED. FLACC 0. PT IS STABLE.
[2020-10-27 16:00] VITALS: BP 114/57
[2020-10-27] MEDS: ACETAMINOPHEN 325 MG TAB PO PRN (16:13)
--- NOTE | 2020-10-27 16:13 | NUR ---
TYLENOL GIVEN FOR FEVER OF 101.1F. BLANKETS WERE REMOVED AND COOLING MEASURES APPLIED. WILL MONITOR TEMP.
--- NOTE | 2020-10-27 16:29 | NUR ---
10/27/20 RD FOLLOW UP COMPLETED PLEASE REFER TO NUTRITION ASSESSMENT UNDER CARE ACTIVITY FOR ESTIMATED NUTRITIONAL NEEDS. 1. CONTINUE GLUCERNA 1.2 @ 50 ML/HR. START AT 20 ML/HR AND INCREASE BY 20 ML/HR Q4H UNTIL GOAL IS REACHED -THIS WILL PROVIDE 1440 KCAL AND 72 GM OF PROTEIN PER DAY. 2. CONTINUED FREE WATER FLUSH OF 110 ML Q6H 3. CONTINUE MULTIVITAMIN DAILY AND VITAMIN C BID 4. RD TO FOLLOW-UP 2-3 DAYS, HIGH RISK JENNIFER NUNO RD
--- NOTE | 2020-10-27 17:30 | NUR ---
RECHECKED PT'S TEMP AND IT IS 98.9. COOLING MEASURES REMOVED. PT NO LONGER HAS A FEVER. PT IS STABLE. G TUBE FEEDING INFUSING. IV IS PATENT AND INTACT.
--- NOTE | 2020-10-27 19:25 | NUR ---
ENDORSED PT TO ELECTRICAL DESIGN TECHNICIAN NURSE FOR CONTINUITY OF CARE. PT IS STABLE AT THIS TIME. PLAN OF CARE DISCUSSED.
--- NOTE | 2020-10-27 19:26 | NUR ---
RECEIVED REPORT FROM CHRISTIANNE MORRIS FOR CONTINUITY OF CARE. PT IN BED RESTING. PT AWAKE, APHASIC. PT WITH CONTRACTED EXTREMITIES. RESPIRATIONS ARE EVEN AND UNLABORED TO ROOM AIR. NO S/SX OF DISTRESS NOTED. ABDOMEN IS SOFT AND NON-TENDER. GTUBE IN PLACE, PT ON CONTINUOUS FEEDING. SKIN IS WARM AND DRY. PT WITH SACRAL, BUTTOCK, HIP ULCERS, DRESSING IN PLACE. PT ALSO WITH NOEL CATHETER IN PLACE, DRAINING WELL. IV ACCESS ON LEFT HAND G22, SALINE LOCKED. FLACC 0, NO S/SX OF PAIN OR DISCOMFORT NOTED. PT KEPT COMFORTABLE. SAFETY MEASURES IN PLACE. WILL CONTINUE TO MONITOR.
[2020-10-27 20:00] VITALS: BP 134/60
[2020-10-27] MEDS: MELATONIN 3 MG TAB PO SCH (20:41)
--- NOTE | 2020-10-27 20:45 | NUR ---
VSS. PT AFEBRILE. 0 RESIDUAL NOTED. SCHEDULED MEDS GIVEN ORDERED. FLACC 0. PT REPOSITIONED. SAFETY MEASURES IN [place]. WILL CONTINUE TO MONITOR.
--- NOTE | 2020-10-27 22:37 | NUR ---
PT IN BED RESTING. PT TURNED AND REPOSITIONED. NO S/SX OF PAIN OR DISCOMFORT NOTED. PT KEPT COMFORTABLE. WILL CONTINUE TO MONITOR.
--- NOTE | 2020-10-28 00:16 | NUR ---
PT IN BED. PT REPOSITIONED COMFORTABLY IN BED. PT AFEBRILE. WILL CONTINUE TO MONITOR.
--- NOTE | 2020-10-28 02:15 | NUR ---
ROUNDS MADE. PT ASLEEP. PT NOT IN DISTRESS. FEEDING INFUSING WELL. FLACC 0. PT TURNED AND REPOSITIONED. WILL CONTINUE TO MONITOR.
[2020-10-28 04:00] VITALS: BP 121/54
--- NOTE | 2020-10-28 04:33 | NUR ---
VS STABLE. PERINEAL CARE, CATHETER CARE, WOUND CARE DONE. PT TOLERATED WELL. PT TURNED AND REPOSITIONED. SAFETY MEASURES IN PLACE. WILL CONTINUE TO MONITOR.
[2020-10-28] MEDS: LEVOTHYROXINE 0.025 MG TAB PO SCH (05:50)
--- NOTE | 2020-10-28 06:24 | NUR ---
NEW FEEDING BAG HUNG. PT TOLERATING WELL.
[2020-10-28 06:38] LABS: ANION GAP 9.6 (8-16); CARBON DIOXIDE 28.5 mmol/L (21-32); CREATININE 0.4 mg/dL (0.6-1.3); POTASSIUM 4.1 mmol/L (3.5-5.1)
[2020-10-28 06:46] LABS: BASOPHILS % (AUTO) 0.2 % (0.0-2.0); EOSINOPHILS # (AUTO) 0.1 K/uL (0-0.4); EOSINOPHILS % (AUTO) 0.8 % (0.0-4.0); HEMATOCRIT 24.4 % (36-48); LYMPHOCYTES # (AUTO) 1.6 K/uL (2.5-16.5); LYMPHOCYTES % (AUTO) 18.8 % (20.5-51.1); MAGNESIUM 2.1 mg/dL (1.8-2.4); MEAN CORPUSCULAR HEMOGLOBIN 27 pg (27-31); MEAN CORPUSCULAR HGB CONC 33 g/dL (33-37); MEAN CORPUSCULAR VOLUME 81.1 fL (80-94); MONOCYTES # (AUTO) 0.5 K/uL (0.8-1.0); MONOCYTES % (AUTO) 6.3 % (1.7-9.3); NEUTROPHILS # (AUTO) 6.2 K/uL (1.8-7.7); NEUTROPHILS % (AUTO) 73.9 % (42.2-75.2); PLATELET COUNT (AUTO) 380 K/uL (140-450); RED CELL DISTRIBUTION WIDTH 16.6 % (11.6-13.7); WHITE BLOOD COUNT (AUTO) 8.4 K/uL (4.8-10.8)
--- NOTE | 2020-10-28 07:09 | NUR ---
ENDORSED TO MORNING SHIFT NURSE FOR CONTINUITY OF CARE
--- NOTE | 2020-10-28 07:11 | NUR ---
RECEIVE REPORT FROM CASTING MACHINE SET UP OPERATOR NURSE FOR CONTINUITY OF CARE. PATIENT SLEEPING. BREATHING EVEN AND UNLABORED. ALL SAFETY MEASURES IN PLACE. WILL CONTINUE TO MONITOR.
[2020-10-28] MEDS: FOAM DRESSING TP SCH (09:00)
[2020-10-28] MEDS: traMADol 50 MG TAB GT SCH (09:57)
[2020-10-28] MEDS: SODIUM PHOS / POTASSIUM PHOS 1 PKT PDR PO SCH (09:58)
[2020-10-28] MEDS: ASCORBIC ACID 500 MG/5 ML ORASYR GT SCH (10:01)
[2020-10-28] MEDS: MULTIVITAMIN/MINERALS 15 ML UDBTL GT SCH (10:01)
--- NOTE | 2020-10-28 10:15 | NUR ---
PATIENT AWAKE. ROUTINE MEDICATION GIVEN VIA G-TUBE. PATIENT HAD 10 ML RESIDUAL. RETAIL OFFICE ASSOCIATE AT BEDSIDE. ALL SAFETY MEASURES IN PLACE. WILL CONTINUE TO MONITOR.
--- NOTE | 2020-10-28 12:30 | NUR ---
PATIENT SLEEPING IN BED. NO ACUTE DISTRESS NOTED. ALL SAFETY MEASURES IN PLACE. WILL CONTINUE TO MONITOR.
[2020-10-28] MEDS: THERAHONEY GEL 42.5 GM TP SCH (13:50)
--- NOTE | 2020-10-28 15:59 | NUR ---
[place] [facility] [place] [phone] SPOKE WITH JORDAN MORRIS TO GIVEN REPORT. TRANSPORTATION AT BEDSIDE. ALL DISCHARGE INFORMATION GIVEN. PATIENT AWAKE. BREATHING EVEN AND UNLABORED. PATIENT IV REMOVED. CATHETER INTACT. ALL DRESSING WOUND CHANGED. PATIENT TRANSPORTED WITH G-TUBE AND NOEL CATHETER. ALL BELONGING TAKEN WITH PATIENT.
--- NOTE | 2020-10-28 16:18 | NUR ---
CALLED ALVA ORTEGA RN TO GIVE UPDATE THAT PATIENT TESTED POSITIVE FOR MRSA IN LEFT HIP DECUBITUS ULCER WOUND SWAB. NURSE NOT AVAILABLE.
--- NOTE | 2020-10-28 17:00 | NUR ---
CALLED ALVA ORTEGA RN TO GIVE UPDATE THAT PATIENT TESTED POSITIVE FOR MRSA IN LEFT HIP DECUBITUS ULCER WOUND SWAB. NURSE NOT AVAILABLE TO SPEAK.
[2020-10-30 15:06] LABS: FOLIC ACID 6.5 ng/mL (>3.0)
== END 2020-10-28 18:36 | DRG 853 ==
LOC: MED 22:07 → MTU 10-21 00:28
PROC: 0JB90ZZ Excision of Buttock Subcutaneous Tissue and Fascia, Open Approach (ICD-10-PCS; 2020-10-25)
PROC: 0JBL0ZZ Excision of Right Upper Leg Subcutaneous Tissue and Fascia, Open Approach (ICD-10-PCS; 2020-10-25)
PROC: 0KBN0ZZ Excision of Right Hip Muscle, Open Approach (ICD-10-PCS; principal; 2020-10-25 10:00)
DX: A41.9 Sepsis, unspecified organism (principal); G93.41 Metabolic encephalopathy; N17.0 Acute kidney failure with tubular necrosis; R53.2 Functional quadriplegia; E43 Unspecified severe protein-calorie malnutrition; E87.1 Hypo-osmolality and hyponatremia; E87.2 Acidosis; L89.329 Pressure ulcer of left buttock, unspecified stage; E86.0 Dehydration; L89.319 Pressure ulcer of right buttock, unspecified stage; L89.229 Pressure ulcer of left hip, unspecified stage; L89.219 Pressure ulcer of right hip, unspecified stage; Z86.73 Personal history of transient ischemic attack (TIA), and cerebral infarction without residual deficits; I10 Essential (primary) hypertension; G30.9 Alzheimer's disease, unspecified; F02.80 Dementia in other diseases classified elsewhere, unspecified severity, without behavioral disturbance, psychotic disturbance, mood disturbance, and anxiety; K59.09 Other constipation; R47.02 Dysphasia; G47.00 Insomnia, unspecified; E83.39 Other disorders of phosphorus metabolism; E86.9 Volume depletion, unspecified; E87.6 Hypokalemia; R73.9 Hyperglycemia, unspecified; E83.51 Hypocalcemia; L89.890 Pressure ulcer of other site, unstageable; E04.1 Nontoxic single thyroid nodule; D63.8 Anemia in other chronic diseases classified elsewhere; Z20.822 Contact with and (suspected) exposure to COVID-19
CPT/HCPCS: 36415; 36600; 71045; 76536; 80048; 80053; 80305; 81003; 82150; 82607; 82728; 82746; 82803; 83036; 83540; 83605; 83690; 83735; 83880; 84100; 84134; 84436; 84443; 85025; 85610; 85730; 87040; 87070; 87075; 87081; 87086; 87186; 87205; 88304; 93005; 96361; 96374; 99285; A4649; J0610; J0690; J1644; J1940; J2001; J2270; J2704; J3010; J3480; J3490; J7030